=== PATIENT | female | born 2000 | race Caucasian/White ===

== ENCOUNTER 2021-12-08 14:47 | Outpatient (RCR) | payer OTHER, SELFPAY ==
[2021-12-08 15:34] LABS: Beta HCG Quantitative 86.07 mIU/ML
== END 2022-03-08 23:59 | disposition home or self-care (01) ==
LOC: ANHLAB 14:47
PROVIDERS: Visit Provider Advanced Practice Midwife
DX: Z87.59 Personal history of other complications of pregnancy, childbirth and the puerperium (principal)
CPT/HCPCS: 36415; 84702; 86900; 86901

== ENCOUNTER 2021-12-10 16:30 | Outpatient (CLI) | payer OTHER, SELFPAY ==
[2021-12-10 17:16] LABS: Beta HCG Quantitative 273.49 mIU/ML
== END 2021-12-10 16:31 | disposition home or self-care (01) ==
LOC: ANHOBOP 16:38
PROVIDERS: Visit Provider Advanced Practice Midwife
DX: Z34.90 Encounter for supervision of normal pregnancy, unspecified, unspecified trimester (principal); Z3A.00 Weeks of gestation of pregnancy not specified
CPT/HCPCS: 36415; 84702

== ENCOUNTER 2022-02-03 17:26 | Emergency (ER) | payer OTHER, SELFPAY ==
[2022-02-03] VITALS (34 sets, daily range): BP systolic 76–115; BP diastolic 53–84; PULSE 0–124; RESP 13–25; TEMP 37.8; O2SAT 100
--- NOTE | ~2022-02-03 | XR_ITS ---
XR chest 1V portable DATE: 02/03/2022 22:25 INDICATION: Chest pain, tachycardiac. Elevated d-dimer. TECHNIQUE: Portable AP chest on 02/03/2022 2219 hours. COMPARISON: None FINDINGS: Normal heart size. No hilar or mediastinal enlargement. The lungs are clear of infiltrate o r consolidation. No pleural effusion or pulmonary vascular congestion or pneumothorax. Included skeletal structures are unremarkable. IMPRESSION: No active cardiopulmonary disease Reviewed, dictated and finalized at location A.
--- NOTE | ~2022-02-03 | CT_ITS ---
EXAMINATION: CTA chest PE protocol DATE: 02/04/2022 00:39 INDICATION: Chest pain, tachycardia. Elevated d-dimer. TECHNIQUE: Computed tomography angiography (CTA) of the chest was performed with 98 CC Omnipaque 350 intravenous contrast timed to evaluate the pulmonary arteries. Coronal maximum intensity projection 3 D-reconstructions were created by the technologist. Automated exposure control and iterative reconstr uction technique were employed. Exam dose: 334.19 mGy-cm total exam DLP. COMPARISON: 02/03/2022 portable AP chest FINDINGS: There is diagnostic contrast enhancement of the pulmonary arteries and no evidence of pulmo nary embolism. No thoracic aortic aneurysm or dissection. No hilar or mediastinal mass lesion or lymphadenopathy. Normal heart size. No pericardial or pleural effusion. Included skeletal structures are unremarkable. IMPRESSION: Negative examination; no evidence of pulmonary embolism Reviewed, dictated and finalized at Location A. Reviewed, dictated and finalized at location A.
--- NOTE | 2022-02-03 18:06 | ED.NAVMDI ---
HPI - Nausea/Vomiting/Diarrhea General Chief complaint: Upper Respiratory Infection <TINO Hernandez Last Filed: 02/03/22 19:11> Stated complaint: COVID + 02/03/2022 12 WEEKS PREG <TINO Hernandez Last Filed: 02/03/22 19:11> Time Seen by Provider: 02/03/22 18:02 <TINO Hernandez Last Filed: 02/03/22 19:11> Source: patient <TINO Hernandez Last Filed: 02/03/22 19:11> Mode of arrival: ambulatory <TINO Hernandez Last Filed: 02/03/22 19:11> Limitations: no limitations <TINO Hernandez Last Filed: 02/03/22 19:11> History of Present Illness HPI Narrative: This is a 21 year old , about 12 weeks , that presents to the ER for nausea and vomiting. Reports yesterday she started to feel unwell. Today she developed a fever, sore throat, nausea and vomiting. She did a home COVID swab which was positive. Her boyfriend recently had positive as well. She denies any pelvic cramping or vaginal bleeding. Her OB is Dr. Smalls. Denies cough or shortness of breath. <TINO Hernandez Last Filed: 02/03/22 19:11> Related Data Allergies/Adverse reactions: Allergies Allergy/AdvReac Type Severity Reaction Status Date / Time amoxicillin [From Augmentin] Allergy Other Verified 02/03/22 19:25 clavulanic acid Allergy Other Verified 02/03/22 19:25 [From Augmentin] Penicillins Allergy Other Verified 02/03/22 19:25 <TINO Hernandez Last Filed: 02/03/22 19:11> Review of Systems Review of Systems: CONSTITUTIONAL: Denies fever ENT: sore throat RESPIRATORY: Denies cough or dyspnea. GASTROINTESTINAL: Reports nausea, vomiting. Denies diarrhea. GENITOURINARY: Denies dysuria <TINO Hernandez Last Filed: 02/03/22 19:11> All systems reviewed & are unremarkable except as noted in HPI and below <Sheila Quintanilla PA-C - Last Filed: 02/03/22 19:11> [facility] Past Medical History Medical History: Medical History (Updated 02/04/22 @ 02:29 by Sheila Valenzuela PA-C) No active medical problems <Sheila Quintanilla PA-C - Last Filed: 02/03/22 19:11> Social History Social History: Social History (Updated 02/03/22 @ 18:08 by Sheila Quintanilla PA-C) Smoking status: Never smoker <Sheila Quintanilla PA-C - Last Filed: 02/03/22 19:11> Exam Narrative: GENERAL: Well-appearing, well-nourished, and in no acute distress. HEAD: Normocephalic, atraumatic. EYES: EOMI. ENT: Nares clear, no rhinorrhea or epistaxis. Mucous membranes moist. Oropharynx without tonsillar hypertrophy exudate or other lesions. Bilateral TMs pearly mcclellan non-bulging NECK: Supple. No adenopathy or masses. CHEST: Clear to auscultation. No respiratory distress. No wheezes rales or rhonchi HEART: Regular rate and rhythm. No murmur heard. Normal peripheral pulses. ABDOMEN: Soft, nontender, nondistended, normal active bowel sounds. EXTREMITIES: Normal range of motion. No edema. SKIN: Warm, dry, no rash. NEURO: No focal deficits. Alert and oriented x3. PSYCH: Normal mood and affect <Sheila Quintanilla PA-C - Last Filed: 02/03/22 19:11> Course Course Emergency Course: Patient inherited at shift change. She is a 21-year-old female who is currently 12 weeks here for evaluation of nausea, vomiting and generalized malaise in setting of COVID+. She is tachycardic with low grade temperature of 100.1; heart tones detected. She has 4+ ketones and evidence of UTI on UA. Patient was rehydrated in the ED with 2 L of normal saline, her heart rate did decrease, she was given antiemetics and tolerated her p.o. challenge. Discussed with OB, will follow up in office, recommended daily asa. Additionally, patient complaining of chest pain; has had chest pain in past and has been told she has abnormal EKG, but has never seen shorts sifter. EKG is abnormal here, no previous to compare, she had 2 sets of troponins that were negative, discussed with Dr. Arnett car
--- NOTE | 2022-02-03 18:20 | ECG_ITS ---
Measurements Intervals [place] Rate: 92 P: 56 AK: 164 QRS: 68 QRSD: 74 T: -30 QT: 331 QTc: 410 Interpretive Statements SINUS RHYTHM ST-T WAVE ABNORMALITY IN ANT/INF LEADS- CONSIDER ISCHEMIA BASELINE ARTIFACT- II, III, AVF ABNORMAL ECG Electronically Signed On 02-03-2022 21:22:31 CDT by Ellis Lara D.O.
[2022-02-03 18:30] LABS: Appearance Urine Clear (Clear); Bilirubin Urine 1+ (Negative); Blood Urine 1+ (Negative); Color Urine Yellow (Yellow); Glucose Urine UA Negative (Negative); Ketones Urine 4+ mg/dL (Negative); Leukocyte Esterase Ur Trace LEU/UL (Negative); Nitrate Urine Negative (Negative); Protein Urine 1+ mg/dL (Negative); Specific Grav Ur 1.025 (1.001-1.035)
[2022-02-03 18:39] LABS: Bacteria Urine Trace /hpf; Mucus Urine Heavy /lpf; Squamous Epithelial Cell Urine Many /hpf (Few); WBC Urine 0-3 /hpf
[2022-02-03 18:41] LABS: Add Urine Microscopic? YES
[2022-02-03] MEDS: ONDANSETRON INJ 4 MG/2 ML VIAL IV PUSH (19:05)
[2022-02-03 19:12] LABS: Basophils Percent Auto 0.2 % (0.2-1.2); Hematocrit 33.3 % (37.0-47.0); Hemoglobin 11.5 g/dL (12.0-15.0); Immature Granulocyte Absolute 0.01 K/mm3 (0.00-0.031); Immature Granulocyte Percent A 0.2 % (0-0.5); Lymphocytes Absolute Auto 0.24 K/mm3 (0.9-3.2); Lymphocytes Percent Auto 4.9 % (18.3-44.2); Mean Corpuscular HGB Conc 34.5 g/dl (32-36); Mean Corpuscular Hemoglobin 29.8 pg (26-34); Mean Corpuscular Volume 86.3 fl (80-100); Mean Platelet Volume 10.2 fl (7.4-10.4); Monocytes Absolute Auto 0.5 K/mm3 (0.1-0.6); Monocytes Percent Auto 9.9 % (2.6-8.5); Neutrophils Absolute Auto 4.1 K/mm3 (1.3-6.7); Neutrophils Percent Auto 84.8 % (45.5-73.1); Platelet Count Result 153 k/mm3 (150-375); Red Blood Count 3.86 M/mm3 (4.2-5.4); Red Cell Distribution Width 12.5 % (11.5-14.5); White Blood Count 4.9 K/mm3 (4.5-10.0)
[2022-02-03 19:22] LABS: Alanine Aminotransferase 10 U/L (6-35); Albumin Level 4.2 g/dL (3.5-5.1); Alkaline Phosphatase 47 U/L (38-126); Anion Gap 9 mmol/L (8-16); Aspartate Amino Transferase 19 U/L (14-36); Bilirubin,Total 0.4 mg/dL (0.2-1.3); Blood Urea Nitrogen 3 mg/dL (7-17); Calcium 8.6 mg/dL (8.4-10.2); Carbon Dioxide 21 mmol/L (22-30); Chloride 104 mmol/L (98-107); Estimated Glomerular Filt Rate > 60; Glucose 87 mg/dL (65-110); Lipase 38 U/L (23-300); Potassium 3.5 mmol/L (3.4-5.0); Sodium 134 mmol/L (137-145)
--- NOTE | 2022-02-03 19:23 | PC.NURSE ---
Patient report given to SAMEER Nielsen. All questions answered and care of patient transferred.
[2022-02-03 19:26] LABS: Ovalocytes 1+ (NORMAL); Platelet Estimate Adequate (Adequate)
--- NOTE | 2022-02-03 19:27 | PC.NURSE ---
Patient report given to SAMEER Nielsen. All questions answered and care of patient transferred.
[2022-02-03] MEDS: SODIUM CHLORIDE 0.9% IV 1,000 ML 999 ML IV CONT ×2 (19:30→21:02)
[2022-02-03] MEDS: FAMOTIDINE 20 MG/2 ML VIAL IV PUSH (19:31)
[2022-02-03 20:18] LABS: SARS-CoV-2 RNA PCR Positive
[2022-02-03 21:46] LABS: Troponin I < 0.012 ng/mL (0.000-0.034)
[2022-02-03 21:55] LABS: Amphetamine Screen Urine Negative (Negative); Barbiturate Screen Urine Negative (Negative); Benzodiazepines Screen Urine Negative (Negative); Cannabinoid Screen Urine Negative (Negative); Cocaine Screen Urine Negative (Negative); Methadone Screen Urine Negative (Negative); Opiate Screen Urine Negative (Negative); Phencyclidine Screen Urine Negative (Negative)
[2022-02-03] MEDS: ASPIRIN 81 MG CHEWABLE TABLET PO (22:16)
[2022-02-03 22:55] LABS: Troponin I < 0.012 ng/mL (0.000-0.034)
[2022-02-04 00:04] LABS: D Dimer 2.07 ug/mL (<0.48)
[2022-02-04 00:36] VITALS: PULSE 118; RESP 18
[2022-02-04 00:45] VITALS: PULSE 105; RESP 18
[2022-02-04 02:06] VITALS: BP 109/72; PULSE 96; RESP 20; O2SAT 100
[2022-02-04 02:57] VITALS: BP 92/62; PULSE 107; RESP 15; O2SAT 100
== END 2022-02-04 02:56 | disposition home or self-care (01) ==
PROVIDERS: Physician Assistant; Emergency Provider Emergency Medicine; PCP Obstetrics & Gynecology
DX: O98.511 Other viral diseases complicating pregnancy, first trimester (principal); U07.1 COVID-19; O23.41 Unspecified infection of urinary tract in pregnancy, first trimester; Z3A.13 13 weeks gestation of pregnancy; R94.31 Abnormal electrocardiogram [ECG] [EKG]
CPT/HCPCS: 36415; 71045; 71275; 80053; 80307; 81001; 81025; 83690; 84484; 85025; 85380; 93005; 96361; 96365; 96375; 99284; A9270; C9803; J0131; J2405; J7030; Q9967; U0003; U0005

== ENCOUNTER 2022-02-26 00:23 | Emergency (ER) | payer OTHER, SELFPAY ==
[2022-02-26] VITALS (8 sets, daily range): BP systolic 91–118; BP diastolic 58–82; PULSE 58–101; RESP 16–18; TEMP 36.9; O2SAT 98–100
--- NOTE | ~2022-02-26 | US_ITS ---
EXAMINATION: US OB limited DATE: 02/26/2022 04:51 INDICATION: Vaginal bleeding. TECHNIQUE: Real-time ultrasound of the pelvis was performed. COMPARISON: None. FINDINGS: There is a single fetus in variable presentation. The placenta is posterior, 3.5 cm from the cervix. There is a 5.7 x 4.5 x 1.3 cm hypoechoic mass at the margin of the placenta, consistent with a hemat shanel. heart rate is 141 beats per minute (bpm). The amniotic fluid volume is subjectively normal . IMPRESSION: 1. Single living fetus in variable presentation. 2. 5.7 x 4.5 x 1.3 cm hematoma at the margin of the placenta. Reviewed, dictated and finalized at location A.
[2022-02-26 00:52] LABS: Basophils Percent Auto 0.5 % (0.2-1.2); Eosinophils Absolute Auto 0.2 K/mm3 (0-0.3); Eosinophils Percent Auto 2.8 % (0-4.4); Hematocrit 33.8 % (37.0-47.0); Hemoglobin 11.2 g/dL (12.0-15.0); Immature Granulocyte Absolute 0.02 K/mm3 (0.00-0.031); Immature Granulocyte Percent A 0.3 % (0-0.5); Lymphocytes Absolute Auto 2.13 K/mm3 (0.9-3.2); Lymphocytes Percent Auto 26.9 % (18.3-44.2); Mean Corpuscular HGB Conc 33.1 g/dl (32-36); Mean Corpuscular Hemoglobin 29.5 pg (26-34); Mean Corpuscular Volume 88.9 fl (80-100); Mean Platelet Volume 10.7 fl (7.4-10.4); Monocytes Absolute Auto 0.9 K/mm3 (0.1-0.6); Monocytes Percent Auto 11.1 % (2.6-8.5); Neutrophils Absolute Auto 4.6 K/mm3 (1.3-6.7); Neutrophils Percent Auto 58.4 % (45.5-73.1); Platelet Count Result 188 k/mm3 (150-375); Red Cell Distribution Width 13.2 % (11.5-14.5); White Blood Count 7.9 K/mm3 (4.5-10.0)
--- NOTE | 2022-02-26 01:00 | PC.NURSE ---
heart tones found in lower abd, 168 BPM
--- NOTE | 2022-02-26 01:29 | ED.GENADULT ---
HPI - General Adult General Chief complaint: Vaginal Bleeding Stated complaint: 15wks preg, vaginal bleeding Time Seen by Provider: 02/26/22 01:05 History of Present Illness HPI narrative: 21-year-old female that is approximately 14 weeks presented emergency department for evaluation of abdominal cramping and vaginal bleeding. Patient states that she did have an ultrasound at 12 weeks confirming an IUP. Patient's blood type is O+. Related Data Allergies Allergy/AdvReac Type Severity Reaction Status Date / Time amoxicillin [From Augmentin] Allergy Other Verified 02/26/22 00:54 clavulanic acid Allergy Other Verified 02/26/22 00:54 [From Augmentin] Penicillins Allergy Other Verified 02/26/22 00:54 Review of Systems Review of Systems: CONSTITUTIONAL: Denies fever, chills, or sweats. EYES: Denies visual changes, redness, or discharge. ENT: Denies rhinorrhea, congestion, sore throat, or otalgia. CARDIOVASCULAR: Denies chest pain, palpitations, or edema. RESPIRATORY: Denies cough or dyspnea. GASTROINTESTINAL: See HPI GENITOURINARY: Denies dysuria or hematuria. SKIN: Denies rash or itching. MUSCULOSKELETAL: Denies back pain, joint pain, or myalgia. NEUROLOGIC: Denies headache, numbness, or weakness. [facility] Past Medical History Medical History (Updated 02/27/22 @ 00:01 by Marija Lopez) No active medical problems Social History Social History (Updated 02/03/22 @ 18:08 by Sheila Quintanilla PA-C) Smoking status: Never smoker Exam Narrative: APPEARANCE: Well appearing, no pain, no distress, well-nourished. HEAD: normocephalic, atraumatic. EYES: PERRLA/EOMI, conjunctivae clear. NOSE: Normal no drainage EARS:TMS clear with good light reflex. THROAT: Pharynx clear, no exudate. NECK: Supple. No adenopathy, no masses. RESPIRATORY: Airway patent, respirations nonlabored. Clear to auscultation bilaterally, no rales, rhonchi, wheezing. CARDIOVASCULAR: Regular rate and rhythm without murmurs rubs or gallops. ABDOMINAL: Soft, nontender, nondistended, normal bowel sounds Pelvic exam: Minimal blood within the vaginal canal. Cervix is closed. MUSCULOSKELETAL: Moves all extremities. Strength/ROM intact, No edema, No calf tenderness. NEURO: Alert. Cranial nerves II through XII intact. SKIN: Warm, dry. 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 All questions and concerns were addressed. Patient is O+ and does not need RhoGAM at this time. Patient was comfortable with the plan for discharge and close follow-up. Patient did feel improved at time of discharge. Vital Signs Vital signs: Vital Signs Temperature 98.4 F 02/26/22 00:26 Pulse Rate 101 H 02/26/22 00:26 Respiratory Rate 18 02/26/22 00:26 Blood Pressure 114/82 02/26/22 00:26 Pulse Oximetry 100 02/26/22 00:26 Oxygen Delivery Room Air 02/26/22 00:26 Temperature 98.4 F 02/26/22 00:26 Pulse Rate 58 L 02/26/22 06:32 Respiratory Rate 16 02/26/22 06:32 Blood Pressure 91/58 L 02/26/22 06:32 Pulse Oximetry 98 02/26/22 06:32 Oxygen Delivery Room Air 02/26/22 00:26 Medical Decision Making Vital Signs Vital Signs: Vital Signs Temperature 98.4 F 02/26/22 00:26 Pulse Rate 101 H 02/26/22 00:26 Respiratory Rate 18 02/26/22 00:26 Blood Pressure 114/82 02/26/22 00:26 Pulse Oximetry 100 02/26/22 00:26 Oxygen Delivery Room Air 02/26/22 00:26 Temperature 98.4 F 02/26/22 00:26 Pulse Rate 58 L 02/26/22 06:32 Respiratory Rate 16 02/26/22 06:32 Blood Pressure 91/58 L 02/26/22 06:32 Pulse Oximetry 98 02/26/22 06:32 Oxygen Delivery Room Air 02/26/22 00:26 Lab Data Lab results reviewed: Yes I reviewed the patient's lab results. Result diagrams: 02/26/22 00:35 Labs: Lab Results 02/26/22 02/26/22 02/26/22 Range/Units 00:35 00:35 00:35 WBC 7.9
[2022-02-26] MEDS: SODIUM CHLORIDE 0.9% IV 1,000 ML 999 ML IV CONT (01:58)
--- NOTE | 2022-02-26 03:36 | PC.NURSE ---
Ultrasound called at this time.
--- NOTE | 2022-02-26 05:30 | PC.NURSE ---
Pt reports vaginal bleeding has slowed since last assessment. Used 1 pad since approx 0100. Rates pain 09/28. Lights dimmed, pt updated on POC.
== END 2022-02-26 06:59 | disposition home or self-care (01) ==
PROVIDERS: Emergency Provider Emergency Medicine; PCP Obstetrics & Gynecology
DX: O20.9 Hemorrhage in early pregnancy, unspecified (principal); Z3A.14 14 weeks gestation of pregnancy
CPT/HCPCS: 36415; 76815; 84702; 85025; 85461; 96361; 96365; 99284; J0131; J7030

== ENCOUNTER 2022-05-15 20:34 | Emergency (ER) | payer OTHER, SELFPAY ==
[2022-05-15 20:40] VITALS: BP 123/84; PULSE 108; RESP 16; TEMP 36.3; O2SAT 100
--- NOTE | 2022-05-15 21:48 | ED.GENADULT ---
HPI - General Adult General Chief complaint: Wound/Laceration Stated complaint: Rash Right Leg Time Seen by Provider: 05/15/22 21:14 History of Present Illness HPI narrative: This is a 27 week 21-year-old female presenting ED with a chief complaint of a rash on her leg. Patient originally had some red pustules that have now Colestid she has a arnold crusted that is approximately 1.5 cm rounded on her thigh. Patient has never had a lesion like this before. She denies fever, chills, Nausea vomiting or diarrhea. 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 Denies use of IV drugs. She denies history of diabetes. She has no forepart rounder complaints at this time. Related Data Allergies Allergy/AdvReac Type Severity Reaction Status Date / Time amoxicillin [From Augmentin] Allergy Other Verified 05/15/22 20:44 clavulanic acid Allergy Other Verified 05/15/22 20:44 [From Augmentin] Penicillins Allergy Other Verified 05/15/22 20:44 Review of Systems Review of Systems: CONSTITUTIONAL: Denies night sweats. EYES: No eye pain ENT: Denies rhinorrhea CARDIOVASCULAR: Denies palpitations RESPIRATORY: Denies hemoptysis GASTROINTESTINAL: Denies hematemesis GENITOURINARY: Denies hematuria. SKIN: Denies rash MUSCULOSKELETAL: Denies myalgia. NEUROLOGIC: Denies weakness. PSYCHIATRIC: Denies delusions PMFSH Past Medical History Medical History (Updated 05/15/22 @ 21:53 by Jamal Chin MD) No active medical problems Social History Social History (Updated 02/03/22 @ 18:08 by Sheila Quintanilla PA-C) Smoking status: Never smoker Exam Narrative: APPEARANCE: No apparent distress. Head atraumatic. EYES: PERRLA/EOMI, NOSE: Normal no drainage NECK: Supple, Trachea midline RESPIRATORY: CTAB, No increased work of breathing. CARDIOVASCULAR: S1S2 appreciated ABDOMINAL: Soft, nontender, nondistended, MUSCULOSKELETAl: No obvious deformities NEURO: Alert. Moving 4/4 extremities SKIN:: 1.5 cm circular lesion on the patient's right thigh. It has a arnold crust. PSYCHIATRIC: Normal affect Course Vital Signs Vital signs: Vital Signs Temperature 97.4 F L 05/15/22 20:40 Pulse Rate 108 H 05/15/22 20:40 Respiratory Rate 16 05/15/22 20:40 Blood Pressure 123/84 05/15/22 20:40 Pulse Oximetry 100 05/15/22 20:40 Oxygen Delivery Room Air 05/15/22 20:40 Temperature 97.4 F L 05/15/22 20:40 Pulse Rate 108 H 05/15/22 20:40 Respiratory Rate 16 05/15/22 20:40 Blood Pressure 123/84 05/15/22 20:40 Pulse Oximetry 100 05/15/22 20:40 Oxygen Delivery Room Air 05/15/22 20:40 Medical Decision Making MDM Narrative Medical decision making narrative: Patient has a lesion on her thigh has a cold crust over. It is consistent with a staph infection. She will be treated with po Keflex and topical mupirocin. Patient has an amoxicillin allergy, however she is taking Keflex in the past with no reaction. She will be given her 1st dose here and monitored for 30 minutes before discharge.Patient instructed to follow-up with her primary care physician Vital Signs Vital Signs: Vital Signs Temperature 97.4 F L 05/15/22 20:40 Pulse Rate 108 H 05/15/22 20:40 Respiratory Rate 16 05/15/22 20:40 Blood Pressure 123/84 05/15/22 20:40 Pulse Oximetry 100 05/15/22 20:40 Oxygen Delivery Room Air 05/15/22 20:40 Temperature 97.4 F L 05/15/22 20:40 Pulse Rate 108 H 05/15/22 20:40 Respiratory Rate 16 05/15/22 20:40 Blood Pressure 123/84 05/15/22 20:40 Pulse Oximetry 100 05/15/22 20:40 Oxygen Delivery Room Air 05/15/22 20:40 Discharge Plan Discharge Clinical Impression: Impetigo, Soft tissue infection Patient Disposition: Home, Self-Care Condition: Stable Instructions: Antibiotic Form, Impetigo (DC) Additional Instructions: Please complete your 7 day course of Keflex and use topical mupirocin. If your condition does not improve
== END 2022-05-15 22:06 | disposition home or self-care (01) ==
PROVIDERS: Emergency Provider Emergency Medicine; PCP Obstetrics & Gynecology
DX: O99.712 Diseases of the skin and subcutaneous tissue complicating pregnancy, second trimester (principal); L01.00 Impetigo, unspecified; L08.9 Local infection of the skin and subcutaneous tissue, unspecified; Z3A.27 27 weeks gestation of pregnancy
CPT/HCPCS: 99283

== ENCOUNTER 2022-06-29 12:45 | Outpatient (CLI) | payer OTHER, SELFPAY ==
--- NOTE | ~2022-06-29 | US_ITS ---
EXAMINATION: US breast LT limited HISTORY: Palpable lump in the outer left breast at the 3:00 location. TECHNIQUE: Limited left breast ultrasound was performed. FINDINGS: There is a 3.4 x 2.8 x 1.4 cm oval, circumscribed, parallel, hypoechoic mass with posterior acoustic enhancement and internal vascularity corresponding to the palpable abnormality of concern. IMPRESSION: Indeterminate left breast mass. Ultrasound-guided biopsy is recommended. BI-RADS category 4, suspicious findings. Reviewed, dictated and finalized at location F. TOR TECH
== END 2022-06-29 12:46 | disposition home or self-care (01) ==
LOC: ANHIMG 12:47
PROVIDERS: Visit Provider Obstetrics & Gynecology
DX: N63.20 Unspecified lump in the left breast, unspecified quadrant (principal); R92.8 Other abnormal and inconclusive findings on diagnostic imaging of breast
CPT/HCPCS: 76642

== ENCOUNTER 2022-07-10 05:37 | Observation (INO) | payer OTHER, SELFPAY ==
[2022-07-10 07:48] VITALS: BP 115/73; PULSE 84
[2022-07-10 08:00] VITALS: BP 114/66; PULSE 76
[2022-07-10 08:15] VITALS: BMI 22.1
--- NOTE | 2022-07-10 08:15 | OBADM ---
This patient, Melany Laws, admitted to the OB room OB Post [facility] for observation. Patient/family oriented to hospital policies and general routines including ID bracelet, bed and alarms, visiting hours, pain management, procedures, bathroom and other care routines, personal items, smoking policy, room service/diet, and visiting hours. Patient/Family are encouraged to report perceived risks to care and to ask questions if they do not understand what they are told or what they should do.
[2022-07-10 08:17] LABS: Add Urine Microscopic? NO; Appearance Urine Clear (Clear); Bilirubin Urine Negative (Negative); Blood Urine Negative (Negative); Color Urine Light Yellow (Yellow); Glucose Urine UA Negative (Negative); Ketones Urine Negative (Negative); Leukocyte Esterase Ur Negative LEU/UL (Negative); Nitrate Urine Negative (Negative); Protein Urine Negative (Negative)
[2022-07-10 08:30] VITALS: BP 110/57; PULSE 73
--- NOTE | 2022-07-30 08:42 | PM.OBTRLD ---
OB - Triage/Final Diagnosis Visit Information Comments/Additional reasons for admission: I have assessed the risk for this patient, Melany Laws, and determined that she would benefit from observation care. Evaluation Laboratory results: Laboratory Tests 07/10/22 07:59 Urine Color Light yellow Urine Appearance Clear Urine pH 7.0 Ur Specific [place] 1.010 Urine Protein Negative Urine Glucose (UA) Negative Urine Ketones Negative Ur Blood (Man) Negative Urine Nitrate Negative Urine Bilirubin Negative Urine Urobilinogen 1.0 Leukocyte Esterase Rfl Negative Final Diagnosis (1) Irregular contractions: Code(s): O47.9 - False labor, unspecified Status: Acute
== END 2022-07-10 10:20 | disposition home or self-care (01) ==
PROVIDERS: Admitting Provider Obstetrics & Gynecology; Visit Provider Obstetrics & Gynecology
DX: O47.03 False labor before 37 completed weeks of gestation, third trimester (principal); Z3A.34 34 weeks gestation of pregnancy
CPT/HCPCS: 81003; G0378; G0379

== ENCOUNTER 2022-08-11 06:13 | Inpatient (IN) | payer OTHER, SELFPAY ==
[2022-08-11] VITALS (158 sets, daily range): BP systolic 99–149; BP diastolic 52–99; PULSE 72–157; RESP 15–17; TEMP 36.7–37.6; O2SAT 95–100; BMI 22.4
[2022-08-11 07:01] LABS: Basophils Absolute Auto 0.1 K/mm3 (0.0-0.1); Basophils Percent Auto 0.6 % (0.2-1.2); Eosinophils Absolute Auto 0.2 K/mm3 (0-0.3); Eosinophils Percent Auto 1.8 % (0-4.4); Hematocrit 34.7 % (37.0-47.0); Hemoglobin 11.3 g/dL (12.0-15.0); Immature Granulocyte Absolute 0.12 K/mm3 (0.00-0.031); Immature Granulocyte Percent A 1.2 % (0-0.5); Lymphocytes Absolute Auto 1.89 K/mm3 (0.9-3.2); Lymphocytes Percent Auto 18.3 % (18.3-44.2); Mean Corpuscular HGB Conc 32.6 g/dl (32-36); Mean Corpuscular Hemoglobin 28.3 pg (26-34); Monocytes Percent Auto 9.9 % (2.6-8.5); Neutrophils Absolute Auto 7.1 K/mm3 (1.3-6.7); Neutrophils Percent Auto 68.2 % (45.5-73.1); Platelet Count Result 203 k/mm3 (150-375); Red Blood Count 3.99 M/mm3 (4.2-5.4); Red Cell Distribution Width 19.7 % (11.5-14.5); White Blood Count 10.4 K/mm3 (4.5-10.0)
[2022-08-11] MEDS: DINOPROSTONE 10 MG VAG INSERT VAGINAL (07:16)
--- NOTE | 2022-08-11 07:25 | LDADM ---
This patient, Melany Laws, was admitted to Labor/Delivery/Recovery 106 on 08/11/22 at 06:13. Plans for labor, pain management and were discussed with patient. Patient/family oriented to hospital policies and general routines including ID bracelet, bed and alarms, visiting hours, pain management, procedures, bathroom and other care routines, personal items, smoking policy, room service/diet and guest tray routines, infant security routines, and visiting hours. Patient/Family are encouraged to report perceived risks to care and to ask questions if they do not understand what they are told or what they should do. See OBIX for further documentation.
--- NOTE | 2022-08-11 09:11 | WPDOBADMIT ---
Obstetrics - Admit Note Admission Note: record reviewed. No pertinent additions to the history and/or any subsequent changes in the physical findings that are not consistent with the expected course of the were found. Elective IOL at 39 weeks, cervadil, anticipate vaginal delivery Additions to the history and/or subsequent changes in the physical findings follow. None.
--- NOTE | 2022-08-11 09:28 | WPDANESEPP ---
Anes - Eval Pre Procedure Procedure: labor epidural Date/Time: 08/11/22 09:28 Preop Diagnosis: labor pain Pre Op Diagnosis: IOL Patient Data Age: 21 Gender: F Height: Weight: Last Vital Signs Temp 36.8 C 08/11/22 07:30 Pulse 88 08/11/22 09:00 BP 104/54 L 08/11/22 09:00 O2 Del Method Room Air 08/11/22 07:24 Allergies Allergy/AdvReac Type Severity Reaction Status Date / Time amoxicillin [From Augmentin] Allergy Other Verified 06/18/22 14:32 clavulanic acid Allergy Other Verified 06/18/22 14:32 [From Augmentin] ferrous sulfate Allergy Rash Verified 07/26/22 14:26 Penicillins Allergy Other Verified 06/18/22 14:32 Home Medications Medication Instructions Recorded Confirmed Type valacyclovir 500 mg tablet 500 mg PO BID 07/26/22 07/26/22 History (Valtrex) Laboratory Tests 08/11/22 08/11/22 08/11/22 06:54 06:54 06:54 WBC 10.4 K/mm3 H K/mm3 (4.5-10.0) RBC 3.99 M/mm3 L M/mm3 (4.2-5.4) Hgb 11.3 g/dL L g/dL (12.0-15.0) Hct 34.7 % L % (37.0-47.0) MCV 87.0 fl fl (80-100) MCH 28.3 pg pg (26-34) MCHC 32.6 g/dl g/dl (32-36) RDW 19.7 % H % (11.5-14.5) Plt Count 203 k/mm3 k/mm3 (150-375) MPV 10.0 fl fl (7.4-10.4) Immature Gran % (Auto) 1.2 % H % (0-0.5) Neut % (Auto) 68.2 % % (45.5-73.1) Lymph % (Auto) 18.3 % % (18.3-44.2) [place] % (Auto) 9.9 % H % (2.6-8.5) Eos % (Auto) 1.8 % % (0-4.4) Baso % (Auto) 0.6 % % (0.2-1.2) Lymph # (Auto) 1.89 K/mm3 K/mm3 (0.9-3.2) [place] # (Auto) 1.0 K/mm3 H K/mm3 (0.1-0.6) Eos # (Auto) 0.2 K/mm3 K/mm3 (0-0.3) Baso # (Auto) 0.1 K/mm3 K/mm3 (0.0-0.1) Abs Immat Gran (auto) 0.12 K/mm3 H K/mm3 (0.00-0.031) Absolute Neuts (auto) 7.1 K/mm3 H K/mm3 (1.3-6.7) Absolute Nucleated RBC 0.0 K/mm3 K/mm3 (0.0-0.012) Nucleated RBC % 0.0 % % (0.0-0.2) RPR Pending Blood Type O Positive Antibody Screen Negative ECG: ? Measurements Intervals? [place]? Rate: ? 92 ? P:? 56 TX: ? 164? QRS:? 68 QRSD: ? 74 ? T:? -30 QT: ? 331? QTc:? 410? Interpretive Statements SINUS RHYTHM ST-T WAVE ABNORMALITY IN ANT/INF LEADS- CONSIDER ISCHEMIA BASELINE ARTIFACT- II, III, AVF ABNORMAL ECG Electronically Signed On 02-03-2022 21:22:31 CDT by Ellis Lara D.O Patient hx anesthesia problems: none Family hx anesthesia problems: none Results Review: All pre-operative results and documents have been reviewed as part of the pre-operative evaluation. [facility] Past Medical History Medical History No active medical problems Social History Social History Smoking status: Former smoker Smoking end date: 11/19/21 Substance use: never Lack of Transportation: No Lack of Food: Never True Current Housing: I Have Housing Concerned About Future Housing: No Difficulty Paying Gas/Electric Bills: No Difficulty Paying for Meds: No Currently Unemployed: No Education: Grade School Difficulty w/ Childcare or Family Care: No Spiritual care concerns: No Exam Day of Procedure 08/11/22 09:28 Patient weight: normal Heart: regular rate and rhythm Lungs: clear to auscultation and normal air movement Airway: Mallampati scale class II Neurological: alert and oriented
[2022-08-11] MEDS: fentaNYL CITRATE INJ (*CRX) 100 MCG/2 ML VIAL 50 MCG IV PUSH ×2 (11:25→12:41)
[2022-08-11] MEDS: fentaNYL CITRATE INJ (*CRX) 100 MCG/2 ML VIAL IV PUSH (13:54)
[2022-08-11] MEDS: LACTATED RINGERS 1,000 ML 125 ML IV CONT ×4 (14:36→23:25)
--- NOTE | 2022-08-11 18:26 | PM.OBPNLAB ---
Pain Control Date/time seen: 08/11/22 18:26 SVE /-2 AROM large mount of clear odorless fluid. anticipate vaginal delivery
[2022-08-11] MEDS: ONDANSETRON INJ 4 MG/2 ML VIAL IV PUSH (22:40)
[2022-08-12] VITALS (54 sets, daily range): BP systolic 105–144; BP diastolic 61–87; PULSE 73–141; RESP 15–17; TEMP 36.4–37.7; O2SAT 97–100
[2022-08-12] MEDS: OXYTOCIN 30 UNITS/NS 500 ML 30 UNITS/500 ML BAG 999 UNITS IV CONT (02:35)
[2022-08-12] MEDS: miSOPROStol 200 MCG TABLET 1000 MCG RECTAL (02:44)
--- NOTE | 2022-08-12 02:52 | PM.OBPRVD ---
OB - Delivery Note Procedure Delivery date: 08/12/22 Procedure: vaginal delivery Induction method: Per Cervidil Protocol Delivery monitor: External FHT and External Uterine Route of delivery: Laceration Description: Perineal - 1st Degree Delivery repair: vicryl Specimen: No Quantitative Blood Loss (ml): 370 Anesthesia type: Epidural Disposition: Floor Baby Date of : 08/12/22 Time of : 02:34 Weeks of gestation at delivery: 39 gender: Female Weight (pounds): 7 Weight (ounces): 11 presentation: vertex position: Left Occiput Anterior Placenta delivery description: Spontaneous Cord Vessel Description: 3 Vessels, Clamped/Cut and Delayed Cord Clamping score one minute: 8 score five minutes: 9 Narrative: mother and baby skin to skin in stable condition, fundus boggy after delivery of placenta and after massage, firm after cytotec placed rectally
[2022-08-12] MEDS: OXYTOCIN 30 UNITS/NS 500 ML 30 UNITS/500 ML BAG 125 UNITS IV CONT (03:08)
[2022-08-12] MEDS: WITCH HAZEL 40 PADS 1 PAD TOPICAL (03:58)
[2022-08-12] MEDS: BENZOCAINE 20% AER SPR (*SP) 56 GM CAN 1 SPRAY TOPICAL (03:58)
[2022-08-12] MEDS: DOCUSATE SODIUM 100 MG CAPSULE PO (08:25)
[2022-08-12] MEDS: MULTIVIT/MIN/PREN/FOL AC/IRON TABLET 1 TAB PO (08:25)
--- NOTE | 2022-08-12 12:49 | WPDANLDPN2 ---
Anes-Prog Note L&D Date/Time: 08/12/22 12:49 Neuro status: Neuro function grossly intact. Cardiovascular status: normal Respiratory status: normal Airway patency: baseline Mental status: baseline Post-Op hydration status: normal Vital Signs: Last Vital Signs Temp 37.7 C H 08/12/22 08:00 Pulse 76 08/12/22 08:00 Resp 16 08/12/22 08:00 BP 105/61 08/12/22 08:00 Pulse Ox 98 08/12/22 08:00 O2 Del Method Room Air 08/12/22 08:00 Pain score (VAS): 07/31 I/O: Intake & Output 08/11/22 08/12/22 08/12/22 23:59 07:59 15:59 Intake Total 1999 500 Output Total 93 Balance 1999 407 Post-procedural complaints: none Patient feedback: Patient satisfied with anesthetic care.
[2022-08-13 01:15] VITALS: BP 110/81; PULSE 70; RESP 16; TEMP 36.8; O2SAT 99
[2022-08-13 05:35] LABS: Hematocrit 30.4 % (37.0-47.0); Hemoglobin 9.8 g/dL (12.0-15.0)
--- NOTE | 2022-08-13 07:57 | PM.OBPNVD ---
OB - PN: Subj Subjective Date/time seen: 08/13/22 07:57 Patient comments: no complaints baby status: doing well OB - PN: Obj Data Labs 08/13/22 05:24 Labs: Laboratory Results - last 24 hr 08/13/22 05:24 Hgb 9.8 L Hct 30.4 L OB - PN A/P Plan day: 1 Plan: routine care Time Spent With Patient Time: Total time spent is greater than 50% in coordination of care (as documented) at patient's floor/unit and/or counseling patient: Time with patient: less than 15 minutes Review of Systems Review of Systems: All systems reviewed & are unremarkable except as noted in HPI and below Exam Narrative: Fundus firm and vaginal flow controlled. No lower ext redness, warmth, or edema. Negative homans. Const: General: comfortable Chest: Breast/axilla inspection: normal inspection of the breasts Resp: Effort & Inspection: normal respiratory effort Cardio: Rate: regular rate GI: GI Palp: Yes Soft to palpation Psych: Appearance: grossly normal Affect: normal affect Attitude: cooperative Thought content: Yes Normal thought content present Judgement: Good judgement present (Psych)
[2022-08-13 08:00] VITALS: BP 108/62; PULSE 68; RESP 18; TEMP 37.3; O2SAT 100
--- NOTE | 2022-08-13 10:01 | WPDANLDPN2 ---
Anes-Prog Note L&D Date/Time: 08/13/22 10:01 Comfortable throughout: labor and delivery Neuraxial method: epidural Epidural/Spinal procedure site: clean & non-tender Neuro status: Neuro function grossly intact. Cardiovascular status: normal Respiratory status: normal Airway patency: baseline Mental status: baseline Post-Op hydration status: normal Vital Signs: Last Vital Signs Temp 37.3 C 08/13/22 08:00 Pulse 68 08/13/22 08:00 Resp 18 08/13/22 08:00 BP 108/62 08/13/22 08:00 Pulse Ox 100 08/13/22 08:00 O2 Del Method Room Air 08/12/22 08:00 Pain score (VAS): 10 I/O: Intake & Output 08/12/22 08/13/22 08/13/22 23:59 07:59 15:59 Intake Total 240 Balance 240 Post-procedural complaints: none Patient feedback: Patient satisfied with anesthetic care.
[2022-08-13] MEDS: MULTIVIT/MIN/PREN/FOL AC/IRON TABLET 1 TAB PO (10:05)
[2022-08-13] MEDS: DOCUSATE SODIUM 100 MG CAPSULE PO (10:05)
[2022-08-13 10:51] LABS: Rapid Plasma Reagin Non-Reactive (NonReactive)
--- NOTE | 2022-08-13 15:03 | PC.NURSE ---
[id number] Introductions were made, then consulted with patient to assess needs related to . Mother led the conversation with her?plans to feed?her infant and the?experience so far. Resources provided for inpatient and outpatient services with the mom/baby guide. Mother voiced understanding of information and is receptive to assistance. is skin to skin and effectively latches to both breast, however, breastfeeds for a few minutes on each side. Mother states she bottle fed her one hour ago. Prior to meeting RN mother was initiated with the feeding plan. Mother is , supplementing with formula bottles and pumping her breast for milk production. Discussed with mother the risks and benefits of the feeding plan, reviewed mom and infant's medical history and addressed questions and concerns. Mother was encouraged to continue to breastfeed and practice skin to skin. Mother voiced understanding of information and when to call for assistance. Reported to the primary RN.
--- NOTE | 2022-08-13 20:42 | PC.NURSE ---
1100 Patient viewed the discharge video Mother & Baby Care, The First Two Weeks . Patient was given the opportunity and encouraged to ask questions. Patient verbalized understanding of information shared and has been given the mother/baby guide for home reference.
[2022-08-14 08:01] VITALS: BP 104/76; PULSE 77; RESP 18; TEMP 36.8; O2SAT 99
--- NOTE | 2022-08-27 08:02 | PM.OBDSVD ---
DS: Admitting Diagnosis Discharge Date 08/13/22 Admitting Diagnosis Labor OB - DS: Summary OB Procedures : None OB Procedures Intrapartum: Spontaneous Vag Delivery OB Procedures: : Other (PPH) Time Spent with Patient Time attestation: Total time spent providing and/or coordinating discharge services: Discharge Plan Discharge Consulting providers: Veena Trevino Discharging Clinician: Aziza Pérez Anticipated Discharge Date/Time: 08/13/22 14:00 Patient Disposition: Home, Self-Care Activity: other - see discharge instructions Diet: regular Wound Care Instructions: follow printed instructions Discharge Instructions: Education: Mom and Baby Guide Given to: Mother Follow-Up: Call your delivering provider's office for an appointment to be seen in: 4 Weeks Mom and baby should come to the [facility] for the follow-up appointment. Appointment Date/Time: Sunday, August 14, 2022 at 8:00 am What to expect at your follow-up visit: Physical Assessment Call [phone] if you are unable to keep your appointment time. BREAST CARE: * Wear a snug supportive bra. * For engorgement discomfort: Breast Feeding: * Apply warm moist washcloths * Express milk as needed to relieve engorgement * Wear loose clothing Bottle Feeding: * May apply ice packs * For sore nipples: * Identify correct latch-on * Apply warm moist washcloths before and after nursing * Air dry nipples after nursing * May apply Lansinoh cream to nipples EPISIOTOMY/PERINEAL CARE: * Until bleeding stops, use your olga lidia bottle after urinating * Change your pad frequently throughout the day * You may take sitz baths several times a day (fill your bathtub with warm water and soak for 20 minutes.) Do NOT bathe in the water * No tub baths until seen by your physician - You may shower ACTIVITY: * Rest as much as possible. * Do not exercise or lift anything heavier than your baby (such as laundry or other children.) * Avoid stairs or driving as much as possible. * Do not put anything into the vagina. No douching, tampons, or sexual activity until seen by physician. NOTIFY PHYSICIAN IF YOU HAVE ANY QUESTIONS OR IF ANY OF THE FOLLOWING SYMPTOMS OCCUR: * If your episiotomy or incision becomes red, swollen, or more painful than what you have experienced in the hospital. * If your vaginal bleeding becomes foul smelling. * If your vaginal bleeding becomes more heavy than a period or if your bleeding changes from pink to bright red. However, you may pass an occasional walnut-sized clot once or twice for the first week . * If you experience a sharp, shooting pain in you calves. * If you discover a hard, reddened area on your breast or if you experience flu-like symptoms. DIET: * Eat regular, well-balanced meals. * Drink plenty of fluids daily. If , drink to thirst. Follow-up/Referrals: Veena Trevino CNM [Certified Nurse Leather Grainer] - Discharge Medications: Continued valacyclovir [Valtrex] 500 mg Tablet 500 mg PO BID Date of admission: 08/11/22 06:13 Primary Care Provider: PHYSICIAN,EMPLOYEE'S REPRESENTATIVE Admitting Provider: Lisa Christensen Attending physician on admission: Aziza Pérez Condition: Stable
--- NOTE | 2022-09-09 08:49 | PM.OBDSVD ---
DS: Admitting Diagnosis Discharge Date 08/13/22 Admitting Diagnosis Labor DS: Discharge Diagnosis Discharge Diagnosis (1) Vaginal delivery: Code(s): O80 - Encounter for full-term uncomplicated delivery Status: Acute OB - DS: Summary OB Procedures : None OB Procedures Intrapartum: Spontaneous Vag Delivery OB Procedures: : None Time Spent with Patient Time attestation: Total time spent providing and/or coordinating discharge services: Discharge Plan Discharge Consulting providers: Veena Trevino Discharging Clinician: Aziza Pérez Anticipated Discharge Date/Time: 08/13/22 14:00 Patient Disposition: Home, Self-Care Activity: other - see discharge instructions Diet: regular Wound Care Instructions: follow printed instructions Discharge Instructions: Education: Mom and Baby Guide Given to: Mother Follow-Up: Call your delivering provider's office for an appointment to be seen in: 4 Weeks Mom and baby should come to the [facility] for the follow-up appointment. Appointment Date/Time: Sunday, August 14, 2022 at 8:00 am What to expect at your follow-up visit: Physical Assessment Call [phone] if you are unable to keep your appointment time. BREAST CARE: * Wear a snug supportive bra. * For engorgement discomfort: Breast Feeding: * Apply warm moist washcloths * Express milk as needed to relieve engorgement * Wear loose clothing Bottle Feeding: * May apply ice packs * For sore nipples: * Identify correct latch-on * Apply warm moist washcloths before and after nursing * Air dry nipples after nursing * May apply Lansinoh cream to nipples EPISIOTOMY/PERINEAL CARE: * Until bleeding stops, use your olga lidia bottle after urinating * Change your pad frequently throughout the day * You may take sitz baths several times a day (fill your bathtub with warm water and soak for 20 minutes.) Do NOT bathe in the water * No tub baths until seen by your physician - You may shower ACTIVITY: * Rest as much as possible. * Do not exercise or lift anything heavier than your baby (such as laundry or other children.) * Avoid stairs or driving as much as possible. * Do not put anything into the vagina. No douching, tampons, or sexual activity until seen by physician. NOTIFY PHYSICIAN IF YOU HAVE ANY QUESTIONS OR IF ANY OF THE FOLLOWING SYMPTOMS OCCUR: * If your episiotomy or incision becomes red, swollen, or more painful than what you have experienced in the hospital. * If your vaginal bleeding becomes foul smelling. * If your vaginal bleeding becomes more heavy than a period or if your bleeding changes from pink to bright red. However, you may pass an occasional walnut-sized clot once or twice for the first week . * If you experience a sharp, shooting pain in you calves. * If you discover a hard, reddened area on your breast or if you experience flu-like symptoms. DIET: * Eat regular, well-balanced meals. * Drink plenty of fluids daily. If , drink to thirst. Follow-up/Referrals: Veena Trevino CNM [Certified Nurse Student Officer] - Discharge Medications: Continued valacyclovir [Valtrex] 500 mg Tablet 500 mg PO BID Date of admission: 08/11/22 06:13 Primary Care Provider: PHYSICIAN,NUCLEAR ENGINEERING TECHNICIAN Admitting Provider: Lisa Christensen Attending physician on admission: Aziza Pérez Condition: Stable
== END 2022-08-13 13:33 | disposition home or self-care (01) | DRG 560 ==
LOC: ANHLDR 06:20 → ANHOB2 08-12 17:06 → ANHLDR 08-14 11:35 → ANHOB2 08-14 11:35
PROVIDERS: Advanced Practice Midwife; Admitting Provider Obstetrics & Gynecology; Visit Provider Advanced Practice Midwife
DX: O43.113 Circumvallate placenta, third trimester (principal); O98.32 Other infections with a predominantly sexual mode of transmission complicating childbirth; Z37.0 Single live birth; Z3A.39 39 weeks gestation of pregnancy; A60.09 Herpesviral infection of other urogenital tract; O36.8330 Maternal care for abnormalities of the fetal heart rate or rhythm, third trimester, not applicable or unspecified; O70.0 First degree perineal laceration during delivery
CPT/HCPCS: 36415; 85014; 85018; 85025; 86592; 86850; 86900; 86901; A9270; J2405; J2590; J2795; J3010; J7120

== ENCOUNTER 2022-08-15 06:27 | Day surgery (SDC) | payer OTHER, SELFPAY ==
[2022-08-15] VITALS (9 sets, daily range): BP systolic 100–144; BP diastolic 47–98; PULSE 62–78; RESP 12–18; TEMP 36.3–36.6; O2SAT 96–100
--- NOTE | ~2022-08-15 | CT_ITS ---
CT Abdomen and Pelvis with contrast. History: Nausea and vomiting, abdominal pain. Status post vaginal delivery 08/12/2022.. Spiral CT of the abdomen and pelvis was performed after the administration of intravenous contrast. 1 00 cc of Omnipaque 350 was administered intravenously without complication. Dose reduction technique was used on this scan by utilizing automated exposure control and iterative reconstruction technique. The dose-length product (DLP) was 180.08 mGy-cm. Findings: Scans through the lung bases demonstrate mild atelectatic change. The liver, spleen, pancreas, gallbladder, adrenals and left kidney are within normal limits. Mild ful lness the right renal collecting system noted. Questionable minimal heterogeneity at the lower pole o f the right kidney parenchyma. No evidence of aortic aneurysm. No lymphadenopathy is seen. There is no evidence of bowel obstruction. There is no evidence to suggest acute appendicitis or dive rticulitis. Images through the pelvis were performed. Uterus is enlarged, consistent with recent state. There is some heterogeneous material within the endometrial cavity, which could reflect blood product s. No ascites is seen. Impression: Enlarged uterus, consistent with recent state. Probable blood products in the endometrial ca vity. There are scattered areas of enhancement, and retained products of conception could be a differ ential consideration. Correlate clinically. Consider ultrasound for further evaluation as indicated. Questionable minimal heterogeneity at the lower pole the right kidney. Subtle/early pyelonephritis is a potential consideration. Correlate with urinalysis and symptomatology. Mild fullness of the right renal collecting system, possibly related to recent . Reviewed, dictated and finalized at location . 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 Probable blood products in the endometrial cavity. There are scattered areas of enhancement, and retai vickey products of conception could be a differential consideration. Correlate cli nically. Consider ultrasound for further evaluation as indicated. Questionable minimal heterogeneity at the lower pole the right kidney. Subtle/e devora pyelonephritis is a potential consideration. Correlate with urinalysis and symptomatology. Mild fullness of the right renal collecting system, possibly related to recent .
--- NOTE | ~2022-08-15 | US_ITS ---
Pelvic ultrasound. Clinical History: Retained products of conception, recent vaginal delivery Technique: Realtime transabdominal and transvaginal scanning of the pelvis was performed. Color flow Doppler and Doppler spectral analysis were performed. Findings: The uterus is anteverted. The endometrial stripe has a thickness of 24 mm. There are exten sive areas of vascular flow within the endometrial contents on color imaging, suspicious for retained product of conception. No focal myometrial mass is identified. The right ovary measures 1.2 x 2.2 x 1.0 cm. No significant right ovarian or adnexal mass is seen. V ascular flow present in the right ovary on Doppler spectral analysis. The left ovary is not visualized. No significant left ovarian or adnexal mass is seen. There is no evidence of free fluid in the cul de sac. Impression: Findings suspicious for retained products of conception, as detailed above. Reviewed, dictated and finalized at [facility]. 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
[2022-08-15] MEDS: SODIUM CHLORIDE 0.9% IV 1,000 ML 999 ML IV CONT ×2 (07:00→09:25)
[2022-08-15] MEDS: ONDANSETRON INJ 4 MG/2 ML VIAL IV PUSH (07:00)
--- NOTE | 2022-08-15 07:10 | ED.GENADULT ---
HPI - General Adult General Chief complaint: Nausea/Vomiting/Diarrhea Stated complaint: vomiting Time Seen by Provider: 08/15/22 06:48 History of Present Illness HPI narrative: 21-year-old female that had a vaginal delivery on 08/12 presents to the emergency department for evaluation of nausea vomiting and increased abdominal cramping. Patient reported no complications from her delivery. Patient did have a first-degree perineal laceration requiring repair by Vicryl. Patient reports that last night she did have a large clot that was passed but that she is only had serosanguineous fluid since. Patient states that she is having some left upper quadrant abdominal pain along with lower abdominal pain. Related Data Home Medications Medication Instructions Recorded Confirmed valacyclovir 500 mg tablet 500 mg PO BID 07/26/22 07/26/22 (Valtrex) Allergies Allergy/AdvReac Type Severity Reaction Status Date / Time amoxicillin [From Augmentin] Allergy Other Verified 08/15/22 11:06 clavulanic acid Allergy Other Verified 08/15/22 11:06 [From Augmentin] ferrous sulfate Allergy Rash Verified 08/15/22 11:06 Penicillins Allergy Other Verified 08/15/22 11:06 Review of Systems Review of Systems: CONSTITUTIONAL: Denies fever, chills, or sweats. EYES: Denies visual changes, redness, or discharge. ENT: Denies rhinorrhea, congestion, sore throat, or otalgia. CARDIOVASCULAR: Denies chest pain, palpitations, or edema. RESPIRATORY: Denies cough or dyspnea. GASTROINTESTINAL: See HPI GENITOURINARY: See HPI SKIN: Denies rash or itching. MUSCULOSKELETAL: Denies back pain, joint pain, or myalgia. NEUROLOGIC: Denies headache, numbness, or weakness. [facility] Past Medical History Medical History No active medical problems Social History Social History Smoking status: Former smoker Smoking end date: 11/19/21 Substance use: never Lack of Transportation: No Lack of Food: Never True Current Housing: I Have Housing Concerned About Future Housing: No Difficulty Paying Gas/Electric Bills: No Difficulty Paying for Meds: No Currently Unemployed: No Education: Grade School Difficulty w/ Childcare or Family Care: No Spiritual care concerns: No Exam Narrative: APPEARANCE: Well appearing, no pain, no distress, well-nourished. HEAD: normocephalic, atraumatic. EYES: PERRLA/EOMI, conjunctivae clear. NOSE: Normal no drainage THROAT: Pharynx clear, no exudate. NECK: Supple. No adenopathy, no masses. RESPIRATORY: Airway patent, respirations nonlabored. Clear to auscultation bilaterally, no rales, rhonchi, wheezing. CARDIOVASCULAR: Regular rate and rhythm without murmurs rubs or gallops. ABDOMINAL: Lower abdominal tenderness to palpation and left upper quadrant tenderness to palpation MUSCULOSKELETAL: Moves all extremities. Strength/ROM intact, No edema, No calf tenderness. NEURO: Alert. Cranial nerves II through XII intact. Grossly intact SKIN: Warm, dry. Normal Color Course Course Emergency Course: Patient was treated with IV fluids and IV Zofran for her symptoms. Patient declined any medication for pain control at this time. Labs were ordered along with a CT abdomen pelvis with contrast. CT scan was concerning for pyelonephritis was also concerned about retained products of conception. Ultrasound was ordered to further evaluate products conception and ultrasound did show evidence of retained products of conception. This was discussed with Dr. Christensen. Dr. Christensen does plan to take the patient for a D&C today at noon. Patient was updated on the results of the work-up and plan for D&C. All questions and concerns were addressed. Patient states she is not currently breast-feeding and is requesting medication for pain control. Patient will be treated with IV Dilaudid. Vital Signs Vital signs: Vital Signs
[2022-08-15 07:15] LABS: Basophils Absolute Auto 0.1 K/mm3 (0.0-0.1); Basophils Percent Auto 0.7 % (0.2-1.2); Eosinophils Absolute Auto 0.4 K/mm3 (0-0.3); Eosinophils Percent Auto 4.3 % (0-4.4); Hematocrit 31.3 % (37.0-47.0); Hemoglobin 9.9 g/dL (12.0-15.0); Immature Granulocyte Absolute 0.13 K/mm3 (0.00-0.031); Immature Granulocyte Percent A 1.4 % (0-0.5); Lymphocytes Absolute Auto 1.44 K/mm3 (0.9-3.2); Lymphocytes Percent Auto 15.4 % (18.3-44.2); Mean Corpuscular HGB Conc 31.6 g/dl (32-36); Mean Corpuscular Hemoglobin 27.8 pg (26-34); Mean Corpuscular Volume 87.9 fl (80-100); Monocytes Absolute Auto 0.6 K/mm3 (0.1-0.6); Monocytes Percent Auto 6.1 % (2.6-8.5); Neutrophils Absolute Auto 6.7 K/mm3 (1.3-6.7); Neutrophils Percent Auto 72.1 % (45.5-73.1); Platelet Count Result 215 k/mm3 (150-375); Red Blood Count 3.56 M/mm3 (4.2-5.4); White Blood Count 9.4 K/mm3 (4.5-10.0)
[2022-08-15 07:20] LABS: Alanine Aminotransferase 13 U/L (6-35); Albumin Level 3.4 g/dL (3.5-5.1); Alkaline Phosphatase 139 U/L (38-126); Anion Gap 2 mmol/L (8-16); Aspartate Amino Transferase 24 U/L (14-36); Bilirubin,Total 0.7 mg/dL (0.2-1.3); Blood Urea Nitrogen 7 mg/dL (7-17); Calcium 8.1 mg/dL (8.4-10.2); Carbon Dioxide 29 mmol/L (22-30); Chloride 108 mmol/L (98-107); Estimated CRCL calculation 117 ml/min; Estimated Glomerular Filt Rate > 60; Glucose 90 mg/dL (65-110); Potassium 3.2 mmol/L (3.4-5.0); Sodium 139 mmol/L (137-145)
[2022-08-15 07:23] LABS: Prothrombin Time 12.4 Seconds (11.1-14.7)
[2022-08-15 07:24] LABS: Partial Thromboplastin Time 27.7 SECONDS (22.3-36.8)
[2022-08-15] MEDS: HYDROmorphone HCL INJ (*CRX) 1 MG/ML SYR 0.5 MG IV PUSH (09:25)
[2022-08-15 09:30] LABS: Appearance Urine Slightly Cloudy (Clear); Bilirubin Urine Negative (Negative); Blood Urine 3+ (Negative); Color Urine Light Yellow (Yellow); Glucose Urine UA Negative (Negative); Ketones Urine Negative (Negative); Leukocyte Esterase Ur Trace LEU/UL (Negative); Nitrate Urine Negative (Negative); Protein Urine Trace mg/dL (Negative)
[2022-08-15 09:35] LABS: Mucus Urine Rare /lpf; RBC Urine 21-50 /hpf (0-2); Squamous Epithelial Cell Urine Moderate /hpf (Few); WBC Urine 31-50 /hpf
[2022-08-15 09:37] LABS: Add Urine Microscopic? YES
--- NOTE | 2022-08-15 09:57 | WPDANESEPPF ---
Anes - Initial Pre Proc Eval Procedure: Operation Date: 08/15/22 14:00 Proposed Procedures p Suction Dilatation and Curettage - Lisa Christensen MD Date/Time: 08/15/22 09:57 Surgeon: Lisa Christensen MD Pre Op Diagnosis: vomiting Patient Data Age: 21 Gender: F Height: 1.57 m Weight: 56.7 kg Last Vital Signs Temp 36.3 C L 08/15/22 06:30 Pulse 69 08/15/22 09:25 Resp 18 08/15/22 09:25 BP 123/93 H 08/15/22 09:25 Pulse Ox 100 08/15/22 09:25 O2 Del Method Room Air 08/15/22 06:30 Allergies Allergy/AdvReac Type Severity Reaction Status Date / Time amoxicillin [From Augmentin] Allergy Other Verified 08/15/22 11:06 clavulanic acid Allergy Other Verified 08/15/22 11:06 [From Augmentin] ferrous sulfate Allergy Rash Verified 08/15/22 11:06 Penicillins Allergy Other Verified 08/15/22 11:06 Home Medications Medication Instructions Recorded Confirmed Type valacyclovir 500 mg tablet 500 mg PO BID 07/26/22 07/26/22 History (Valtrex) Laboratory Tests 08/15/22 08/15/22 08/15/22 06:54 06:54 06:54 WBC 9.4 K/mm3 K/mm3 (4.5-10.0) RBC 3.56 M/mm3 L M/mm3 (4.2-5.4) Hgb 9.9 g/dL L g/dL (12.0-15.0) Hct 31.3 % L % (37.0-47.0) MCV 87.9 fl fl (80-100) MCH 27.8 pg pg (26-34) MCHC 31.6 g/dl L g/dl (32-36) RDW 19.0 % H % (11.5-14.5) Plt Count 215 k/mm3 k/mm3 (150-375) MPV 10.0 fl fl (7.4-10.4) Immature Gran % (Auto) 1.4 % H % (0-0.5) Neut % (Auto) 72.1 % % (45.5-73.1) Lymph % (Auto) 15.4 % L % (18.3-44.2) [place] % (Auto) 6.1 % % (2.6-8.5) Eos % (Auto) 4.3 % % (0-4.4) Baso % (Auto) 0.7 % % (0.2-1.2) Lymph # (Auto) 1.44 K/mm3 K/mm3 (0.9-3.2) [place] # (Auto) 0.6 K/mm3 K/mm3 (0.1-0.6) Eos # (Auto) 0.4 K/mm3 H K/mm3 (0-0.3) Baso # (Auto) 0.1 K/mm3 K/mm3 (0.0-0.1) Abs Immat Gran (auto) 0.13 K/mm3 H K/mm3 (0.00-0.031) Absolute Neuts (auto) 6.7 K/mm3 K/mm3 (1.3-6.7) Absolute Nucleated RBC 0.0 K/mm3 K/mm3 (0.0-0.012) Nucleated RBC % 0.0 % % (0.0-0.2) PT 12.4 Seconds Seconds (11.1-14.7) INR 1.0 APTT 27.7 SECONDS SECONDS (22.3-36.8) Sodium 139 mmol/L mmol/L (137-145) Potassium 3.2 mmol/L L mmol/L (3.4-5.0) Chloride 108 mmol/L H mmol/L (98-107) Carbon Dioxide 29 mmol/L mmol/L (22-30) Anion Gap 2 mmol/L L mmol/L (8-16) BUN 7 mg/dL mg/dL (7-17) Creatinine 0.50 mg/dL L mg/dL (0.7-1.0) Estim Creat Clear Calc 117 ml/min ml/min Estimated GFR > 60 (59 - ) Glucose 90 mg/dL mg/dL (65-110) Calcium 8.1 mg/dL L mg/dL (8.4-10.2) Total Bilirubin 0.7 mg/dL mg/dL (0.2-1.3) AST 24 U/L U/L (14-36) ALT 13 U/L U/L (6-35) Alkaline Phosphatase 139 U/L H U/L (38-126) Total Protein 6.0 g/dL L g/dL (6.3-8.2) Albumin 3.4 g/dL L g/dL (3.5-5.1) Urine Color Urine Appearance Urine pH Ur Specific [place] Urine Protein Urine Glucose (UA) Urine Ketones Ur Blood (Man) Urine Nitrate Urine Bilirubin Urine Urobilinogen Leukocyte Esterase Rfl Urine RBC Urine WBC Ur Squamous Epith Cells Urine Mucus 08/15/22 09:21 WBC RBC Hgb Hct MCV MCH MCHC RDW Plt Count MPV Immature Gran % (Auto) Neut % (Auto) Lymph % (Auto) [place] % (Auto) Eos % (Auto) Baso % (Auto) Lymph # (Auto) [place] # (Auto) Eos # (Auto) Baso # (Auto)
--- NOTE | 2022-08-15 10:47 | PM.IMHP ---
H&P: HPI History of Present Illness Date/Time: 08/15/22 10:47 Chief Complaint: vaginal bleeding Narrative: this patient is a 21-year-old female who presented emergency department complaining of vaginal bleeding. She is 4-5 days . After evaluation by the emergency department with radiologic evaluation it appears the patient has retained products conception. We agreed to proceed with this suction D&C. She understands the procedure well. She understands the risk the procedure. She understands that injuries may occur that result in hospitalization, more surgery, and severe illness. She understands risk of hemorrhage infection Review of Systems Review of Systems: All systems reviewed & are unremarkable except as noted in HPI and below Constitutional: Constitutional: Denies chills, Denies fatigue, Denies fever(s) and Denies weakness Eyes: Eyes: Denies blurry vision, Denies change in vision, Denies loss of peripheral vision, Denies loss of vision, Denies other visual disturbances and Denies eye pain ENT: Denies vertigo, Denies dizziness, Denies hearing loss, Denies mouth pain, Denies nasal obstruction, Denies neck mass and Denies neck pain Cardiovascular: Cardiovascular: Denies chest pain, Denies diaphoresis, Denies syncope, Denies leg edema and Denies dyspnea Respiratory: Respiratory: Denies chest congestion, Denies cough, Denies hemoptysis, Denies dyspnea and Denies wheezing Gastrointestinal: Gastrointestinal: Denies abdominal pain, Denies constipation, Denies diarrhea, Denies nausea and Denies vomiting Genitourinary: Genitourinary: Denies hematuria, Denies change in libido, Denies nocturia, Denies genital lesions, Denies flank pain and Denies urinary urgency Musculoskeletal: Musculoskeletal: Denies abnormal gait, Denies back pain, Denies myalgias, Denies arthralgias, Denies joint swelling, Denies muscle weakness and Denies neck pain Integumentary/Breasts: Skin/Breast: Denies swelling, Denies breast pain, Denies breast mass, Denies dry skin, Denies nipple discharge, Denies unusual bruising and Denies jaundice Neurologic: Denies Neuro-related abnormal movements, Denies Abnormal speech present, Denies abnormal gait, Denies behavioral changes, Denies confusion, Denies vertigo, Denies dizziness, Denies syncope, Denies loss of vision, Denies memory loss, Denies convulsions and Denies weakness Psychiatric: Psychiatric: Denies abnormal sleep pattern, Denies behavioral changes, Denies change in libido, Denies confusion, Denies depression, Denies anhedonia and Denies memory loss Endocrine: Endocrine: Reports no additional endocrine complaints, Denies change in libido and Denies fatigue Hematologic/Lymphatic: Hematologic/Lymphatic: Reports no additional hematologic/lymphatic complaints Allergic/Immunologic: Allergic/Immunologic: Reports no additional allergic/immunologic complaints and Denies wheezing PMFSH Past Medical History Medical History No active medical problems Social History Social History Smoking status: Former smoker Smoking end date: 11/19/21 Substance use: never Lack of Transportation: No Lack of Food: Never True Current Housing: I Have Housing Concerned About Future Housing: No Difficulty Paying Gas/Electric Bills: No Difficulty Paying for Meds: No Currently Unemployed: No Education: Grade School Difficulty w/ Childcare or Family Care: No Spiritual care concerns: No Meds Home Medications and Allergies Home Medications Medication Instructions Recorded Confirmed Type valacyclovir 500 mg tablet 500 mg PO BID 07/26/22 07/26/22 History (Valtrex) Allergies Allergy/AdvReac Type Severity Reaction Status Date / Time amoxicillin [From Augmentin] Allergy Other Verified 06/18/22 14:32 clavulanic acid Allergy Other Verified 06/18/22 14:32 [From Augmentin]
--- NOTE | 2022-08-15 10:51 | WPDHPUPDATE1 ---
History and Physical Update Update Date/Time: 08/15/22 10:51 History and Physical has been reviewed, including an updated exam of the patient. There are NO changes in the patient's condition. Risks, benefits, and alternatives have been discussed and questions answered. Patient agrees to proceed with procedure.
[2022-08-15] MEDS: LACTATED RINGERS 1,000 ML 30 ML IV CONT (13:01)
--- NOTE | 2022-08-15 13:15 | P.OP_ITS ---
Procedure Note - Detailed Date of Procedure 08/15/22 Pre-op Diagnosis vomiting Post-op Diagnosis Same Procedure Performed Suction D&C Surgeon Lisa Christensen MD Anesthesia MAC Indications missed Findings normal-appearing vulva vagina and cervix post . Moderate amount of products conception within the uterus. 20 cm uterus Description of Procedure the patient was taken the operating room. She was prepped and draped in dorsal lithotomy position after induction of mac anesthesia. A speculum was placed in the vagina. Cervix grasped with tenaculum. The cervix was dilated to about 1 cm Using Gonzalez dilators. A 8. Sammarinese curved curette was used to perform suction D&C. The curette was introduced and vacuum was applied. The curette was removed over all surfaces of the intrauterine cavity multiple times. This was done until all the surfaces were clear and had the familiar grainy texture they can be felt through the instrument. A sharp curette was then used to curettage all the surfaces. The suction cup was then reapplied 1 more time to remove any debris. The instruments were removed. The speculum and tenaculum were removed. The patient tolerated the procedure well. She was taken recovery room stable condition. Estimated Blood Loss -400.0 Drains No Packing No Pathology Yes Complications No immediate complications Condition Stable Disposition PACU
[2022-08-15] MEDS: KETOROLAC 30 MG/ML VIAL (*BKC) IV PUSH (13:19)
[2022-08-15] MEDS: fentaNYL CITRATE INJ (*CRX) 100 MCG/2 ML VIAL 25 MCG IV PUSH ×4 (13:30→13:39)
[2022-08-15] MEDS: oxyCODONE HCL (*CRX) 5 MG TAB IR PO (13:58)
== END 2022-08-15 14:25 | disposition home or self-care (01) ==
LOC: ANHED 09:04 → ANHSURGERY 09:07
PROVIDERS: Emergency Medicine; Emergency Provider Emergency Medicine; PCP Family Medicine; Visit Provider Obstetrics & Gynecology
PROC: (CPT 59160; principal; 2022-08-15 14:00)
DX: O72.2 Delayed and secondary postpartum hemorrhage (principal); O86.20 Urinary tract infection following delivery, unspecified; N39.0 Urinary tract infection, site not specified; Z87.891 Personal history of nicotine dependence
CPT/HCPCS: 59160; 36415; 74177; 76856; 80053; 81001; 85025; 85610; 85730; 87086; 87088; 88305; 96361; 96374; 96375; 99285; A9270; J0131; J1100; J1170; J1885; J1956; J2250; J2405; J2704; J3010; J7030; J7120; Q9967

== ENCOUNTER 2023-08-10 21:38 | Observation (INO) | payer OTHER, SELFPAY ==
[2023-08-10 21:39] VITALS: BP 118/78; PULSE 147; RESP 18; TEMP 36.2; O2SAT 100
[2023-08-10 21:46] VITALS: PULSE 92; RESP 18; O2SAT 100; BMI 20.6
[2023-08-10 22:06] LABS: Basophils Percent Auto 0.5 % (0.2-1.2); Eosinophils Absolute Auto 0.1 K/mm3 (0-0.3); Hematocrit 29.2 % (37.0-47.0); Hemoglobin 8.8 g/dL (12.0-15.0); Immature Granulocyte Absolute 0.01 K/mm3 (0.00-0.031); Immature Granulocyte Percent A 0.2 % (0-0.5); Lymphocytes Absolute Auto 2.21 K/mm3 (0.9-3.2); Lymphocytes Percent Auto 40.4 % (18.3-44.2); Mean Corpuscular HGB Conc 30.1 g/dl (32-36); Mean Corpuscular Hemoglobin 25.8 pg (26-34); Mean Corpuscular Volume 85.6 fl (80-100); Mean Platelet Volume 10.4 fl (7.4-10.4); Monocytes Absolute Auto 0.4 K/mm3 (0.1-0.6); Monocytes Percent Auto 6.4 % (2.6-8.5); Neutrophils Absolute Auto 2.8 K/mm3 (1.3-6.7); Neutrophils Percent Auto 50.5 % (45.5-73.1); Platelet Count Result 307 k/mm3 (150-375); Red Blood Count 3.41 M/mm3 (4.2-5.4); White Blood Count 5.5 K/mm3 (4.5-10.0)
--- NOTE | 2023-08-10 22:34 | ED.PREGNANCY ---
HPI - General Chief complaint: Vaginal Bleeding Stated complaint: vaginal bleeding Time Seen by Provider: 08/10/23 22:18 Source: patient Mode of arrival: ambulatory Limitations: no limitations History of Present Illness HPI Narrative: This is a 22 year old female that presents to the ER for vaginal bleeding. Reports ongoing over the last week. Reports her LMP was 05/31/23. Reports she was seen at another facility 3 days ago and had quantitative beta HCG in the 9000 range. They did not visualize a fetus on US, but saw blood clots in the uterus. She was able to be discharged. Presented tonight for worsening bleeding and lightheadedness. Her INTERNET MARKETING MANAGER is Dr. Christensen. Denies fevers or vomiting. Related Data Home Medications Medication Instructions Recorded Confirmed valacyclovir 500 mg tablet 500 mg PO BID 07/26/22 07/26/22 (Valtrex) Allergies Allergy/AdvReac Type Severity Reaction Status Date / Time amoxicillin [From Augmentin] Allergy Other Verified 08/10/23 21:43 clavulanic acid Allergy Other Verified 08/10/23 21:43 [From Augmentin] ferrous sulfate Allergy Rash Verified 08/10/23 21:43 Penicillins Allergy Other Verified 08/10/23 21:43 Review of Systems Review of Systems: CONSTITUTIONAL: Denies fever GASTROINTESTINAL: Reports pelvic cramping. Denies nausea, vomiting All systems reviewed & are unremarkable except as noted in HPI and below PMFSH Past Medical History Medical History No active medical problems Surgical History Surgical History (Updated 08/10/23 @ 23:38 by Patrick Alicea MD) History of D&C Social History Social History Smoking status: Former smoker Smoking end date: 11/19/21 Substance use: never Lack of Transportation: No Lack of Food: Never True Current Housing: I Have Housing Concerned About Future Housing: No Difficulty Paying Gas/Electric Bills: No Difficulty Paying for Meds: No Currently Unemployed: No Education: Grade School Difficulty w/ Childcare or Family Care: No Spiritual care concerns: No Exam Narrative: GENERAL: Pale, well-nourished, and in no acute distress. HEAD: Normocephalic, atraumatic. EYES: EOMI. CHEST: Clear to auscultation. No respiratory distress. No wheezes rales or rhonchi HEART: Tachycardic, regular rhythm. No murmur heard. Normal peripheral pulses. ABDOMEN: Soft, nontender, nondistended, normal active bowel sounds. EXTREMITIES: Normal range of motion. No edema. SKIN: Warm, dry, no rash. NEURO: No focal deficits. Alert and oriented x3. PSYCH: Normal mood and affect PELVIC: Large amount of dark red blood in the vaginal vault with blood clots. Able to eventually clear away bleeding and visualize the cervix with tissue passing. Blood continues to steadily ooze from the cervix Course Course Emergency Course: Patient updated on her workup and need for likely OR for D&C Consultations Consultation #1: Spoke with Dr. Last about patient and workup. Patient will be taken to the OR for D&C Date: 08/10/23 Vital Signs Vital signs: Vital Signs Temperature 97.2 F L 08/10/23 21:39 Pulse Rate 147 H 08/10/23 21:39 Respiratory Rate 18 08/10/23 21:39 Blood Pressure 118/78 08/10/23 21:39 Pulse Oximetry 100 08/10/23 21:39 Oxygen Delivery Room Air 08/10/23 21:39 Temperature 97.2 F L 08/10/23 21:39 Pulse Rate 147 H 08/10/23 21:39 Respiratory Rate 18 08/10/23 21:39 Blood Pressure 118/78 08/10/23 21:39 Pulse Oximetry 100 08/10/23 21:39 Oxygen Delivery Room Air 08/10/23 21:39 MDM - OB/Uterine Contractions MDM Narrative Medical decision making narrative: Patient presents to the emergency department for vaginal bleeding. She is about 10 weeks by LMP. Reports she has had bleeding over the last week. She was seen at another ER and had a quantitative beta HCG in the 90
[2023-08-10 23:11] VITALS: BP 130/95; PULSE 119; RESP 20; O2SAT 100
[2023-08-10] MEDS: SODIUM CHLORIDE 0.9% IV 1,000 ML 999 ML (23:11)
--- NOTE | 2023-08-10 23:25 | WPDANESEPP ---
Anes - Eval Pre Procedure Procedure: Labor epidural Date/Time: 08/10/23 23:25 Surgeon: tony Preop Diagnosis: missed ab Pre Op Diagnosis: vaginal bleeding Patient Data Age: 22 Gender: F Height: 1.57 m Weight: 49 kg Last Vital Signs Temp 36.2 C L 08/10/23 21:39 Pulse 119 H 08/10/23 23:11 Resp 20 08/10/23 23:11 BP 130/95 H 08/10/23 23:11 Pulse Ox 100 08/10/23 23:11 O2 Del Method Room Air 08/10/23 21:39 Allergies Allergy/AdvReac Type Severity Reaction Status Date / Time amoxicillin [From Augmentin] Allergy Other Verified 08/10/23 21:43 clavulanic acid Allergy Other Verified 08/10/23 21:43 [From Augmentin] ferrous sulfate Allergy Rash Verified 08/10/23 21:43 Penicillins Allergy Other Verified 08/10/23 21:43 Home Medications Medication Instructions Recorded Confirmed Type valacyclovir 500 mg tablet 500 mg PO BID 07/26/22 07/26/22 History (Valtrex) Laboratory Tests 08/10/23 21:55 WBC 5.5 K/mm3 (4.5-10.0) RBC 3.41 L M/mm3 (4.2-5.4) Hgb 8.8 L g/dL (12.0-15.0) Hct 29.2 L % (37.0-47.0) MCV 85.6 fl (80-100) MCH 25.8 L pg (26-34) MCHC 30.1 L g/dl (32-36) RDW 13.0 % (11.5-14.5) Plt Count 307 k/mm3 (150-375) MPV 10.4 fl (7.4-10.4) Immature Gran % (Auto) 0.2 % (0-0.5) Neut % (Auto) 50.5 % (45.5-73.1) Lymph % (Auto) 40.4 % (18.3-44.2) [place] % (Auto) 6.4 % (2.6-8.5) Eos % (Auto) 2.0 % (0-4.4) Baso % (Auto) 0.5 % (0.2-1.2) Lymph # (Auto) 2.21 K/mm3 (0.9-3.2) [place] # (Auto) 0.4 K/mm3 (0.1-0.6) Eos # (Auto) 0.1 K/mm3 (0-0.3) Baso # (Auto) 0.0 K/mm3 (0.0-0.1) Abs Immat Gran (auto) 0.01 K/mm3 (0.00-0.031) Absolute Neuts (auto) 2.8 K/mm3 (1.3-6.7) Absolute Nucleated RBC 0.0 K/mm3 (0.0-0.012) Nucleated RBC % 0.0 % (0.0-0.2) Beta HCG, Quant 7843.20 mIU/ML Blood Type O Positive Antibody Screen Negative Screen TNP Baby's Blood Type TNP Baby's WILLIAMS TNP Doses of RhIg Required 0 Patient hx anesthesia problems: none Family hx anesthesia problems: none Results Review: All pre-operative results and documents have been reviewed as part of the pre-operative evaluation. [facility] Past Medical History Medical History No active medical problems Social History Social History Smoking status: Former smoker Smoking end date: 11/19/21 Substance use: never Lack of Transportation: No Lack of Food: Never True Current Housing: I Have Housing Concerned About Future Housing: No Difficulty Paying Gas/Electric Bills: No Difficulty Paying for Meds: No Currently Unemployed: No Education: Grade School Difficulty w/ Childcare or Family Care: No Spiritual care concerns: No Exam Day of Procedure 08/10/23 23:25
[2023-08-10] MEDS: MORPHINE SULFATE (*CRX) 4 MG/ML INJ IV PUSH (23:27)
[2023-08-10] MEDS: ONDANSETRON INJ 4 MG/2 ML VIAL IV PUSH (23:27)
[2023-08-10 23:28] VITALS: BP 112/78; PULSE 122; RESP 20; O2SAT 100
[2023-08-10 23:35] VITALS: BP 103/70; PULSE 96; RESP 20; TEMP 35.8; O2SAT 100
--- NOTE | 2023-08-10 23:37 | WPDANESEPPF ---
Anes - Initial Pre Proc Eval Procedure: Operation Date: 08/10/23 23:45 Proposed Procedures p D&C Suction and Sharp - Federico Last MD Date/Time: 08/10/23 23:37 Pre Op Diagnosis: vaginal bleeding Patient Data Age: 22 Gender: F Height: 1.57 m Weight: 49 kg Last Vital Signs Temp 36.2 C L 08/10/23 21:39 Pulse 122 H 08/10/23 23:28 Resp 20 08/10/23 23:28 BP 112/78 08/10/23 23:28 Pulse Ox 100 08/10/23 23:28 O2 Del Method Room Air 08/10/23 21:39 Allergies Allergy/AdvReac Type Severity Reaction Status Date / Time amoxicillin [From Augmentin] Allergy Other Verified 08/10/23 21:43 clavulanic acid Allergy Other Verified 08/10/23 21:43 [From Augmentin] ferrous sulfate Allergy Rash Verified 08/10/23 21:43 Penicillins Allergy Other Verified 08/10/23 21:43 Home Medications Medication Instructions Recorded Confirmed Type valacyclovir 500 mg tablet 500 mg PO BID 07/26/22 07/26/22 History (Valtrex) Laboratory Tests 08/10/23 21:55 WBC 5.5 K/mm3 (4.5-10.0) RBC 3.41 L M/mm3 (4.2-5.4) Hgb 8.8 L g/dL (12.0-15.0) Hct 29.2 L % (37.0-47.0) MCV 85.6 fl (80-100) MCH 25.8 L pg (26-34) MCHC 30.1 L g/dl (32-36) RDW 13.0 % (11.5-14.5) Plt Count 307 k/mm3 (150-375) MPV 10.4 fl (7.4-10.4) Immature Gran % (Auto) 0.2 % (0-0.5) Neut % (Auto) 50.5 % (45.5-73.1) Lymph % (Auto) 40.4 % (18.3-44.2) [place] % (Auto) 6.4 % (2.6-8.5) Eos % (Auto) 2.0 % (0-4.4) Baso % (Auto) 0.5 % (0.2-1.2) Lymph # (Auto) 2.21 K/mm3 (0.9-3.2) [place] # (Auto) 0.4 K/mm3 (0.1-0.6) Eos # (Auto) 0.1 K/mm3 (0-0.3) Baso # (Auto) 0.0 K/mm3 (0.0-0.1) Abs Immat Gran (auto) 0.01 K/mm3 (0.00-0.031) Absolute Neuts (auto) 2.8 K/mm3 (1.3-6.7) Absolute Nucleated RBC 0.0 K/mm3 (0.0-0.012) Nucleated RBC % 0.0 % (0.0-0.2) Beta HCG, Quant 7843.20 mIU/ML Blood Type O Positive Antibody Screen Negative Screen TNP Baby's Blood Type TNP Baby's WILLIAMS TNP Doses of RhIg Required 0 Patient hx anesthesia problems: none Family hx anesthesia problems: none Results Review: All pre-operative results and documents have been reviewed as part of the pre-operative evaluation. [facility] Past Medical History Medical History (Updated 08/10/23 @ 23:38 by Patrick Alicea MD) Anemia Retained products of conception Surgical History Surgical History (Updated 08/10/23 @ 23:38 by Patrick Alicea MD) History of D&C Social History Social History Smoking status: Former smoker Smoking end date: 11/19/21 Substance use: never Lack of Transportation: No Lack of Food: Never True Current Housing: I Have Housing Concerned About Future Housing: No Difficulty Paying Gas/Electric Bills: No Difficulty Paying for Meds: No Currently Unemployed: No Education: Grade School Difficulty w/ Childcare or Family Care: No Spiritual care concerns: No Anes - Eval Final PreProcedure Day of Procedure 08/10/23 23:37 Patient weight: thin Heart: regular rate and rhythm Lungs: clear to auscultation Airway: Mallampati scale class II Neurological: alert and oriented Last oral intake: 4 hours ASA classification: II Emergent: yes Anesthetic plan: proceed Anesthesia type and monitoring: general ETT and standard monitoring Results Review: All pre-operative results and documents have been reviewed as part of the pre-operative evaluation. Informed Consent: The patient's anesthetic plan and its attendant risks and benefits were discussed with the patient/family/POA. Questions were solicited and answers provided to the satisfaction of the patient/family/POA.
--- NOTE | 2023-08-10 23:38 | PM.IMHP ---
H&P: HPI History of Present Illness Date/Time: 08/10/23 23:38 Chief Complaint: vaginal bleeding Narrative: Patient is a 22 year old at 10 weeks per patient report who presents for worsening vaginal bleeding. She was seen in an outside ER 1 week ago after she began having mild vaginal bleeding in the setting of 1st trimester of , at which time BSUS demonstrated no embryo or gestational sac, however there was blood and clot in the uterus per the patient. She was diagnosed with a miscarriage and sent home. She reports that today her bleeding has worsened significantly, bleeding through multiple pads in an hour. She reports dizziness and difficulty with walking. She denies unilateral abdominal pain, fevers or chills. She reports lower abdominal cramping. Review of Systems Review of Systems: All systems reviewed & are unremarkable except as noted in HPI and below PMFSH Past Medical History Medical History Anemia Retained products of conception Surgical History Surgical History History of D&C Social History Social History Smoking status: Former smoker Smoking end date: 11/19/21 Substance use: never Lack of Transportation: No Lack of Food: Never True Current Housing: I Have Housing Concerned About Future Housing: No Difficulty Paying Gas/Electric Bills: No Difficulty Paying for Meds: No Currently Unemployed: No Education: Grade School Difficulty w/ Childcare or Family Care: No Spiritual care concerns: No Meds Home Medications and Allergies Home Medications Medication Instructions Recorded Confirmed Type valacyclovir 500 mg tablet 500 mg PO BID 07/26/22 07/26/22 History (Valtrex) Allergies Allergy/AdvReac Type Severity Reaction Status Date / Time amoxicillin [From Augmentin] Allergy Other Verified 08/10/23 21:43 clavulanic acid Allergy Other Verified 08/10/23 21:43 [From Augmentin] ferrous sulfate Allergy Rash Verified 08/10/23 21:43 Penicillins Allergy Other Verified 08/10/23 21:43 Vital Signs Vital Signs - 24 hr 08/10/23 21:39 08/10/23 23:11 08/10/23 23:28 Temperature 97.2 F L Pulse Rate 147 H 119 H 122 H Respiratory Rate 18 20 20 Blood Pressure 118/78 130/95 H 112/78 Pulse Oximetry 100 100 100 Oxygen Delivery Room Air Exam Const: General: comfortable and in distress mild Other: pale appearing HENMT: Mouth: Yes moist mucous membranes Eyes: General: appearance normal, both eyes and all related structures Resp: Effort & Inspection: normal respiratory effort Cardio: Rate: tachycardic Rhythm: regular rhythm GI: GI Palp: Yes Soft to palpation : Other: exam performed by PA, large amount of blood and clot in the vagina, some tissue seen at external os with continued bleeding from inside the uterus Extrem: General: normal to inspection H&P: Results Labs Labs: Short CBC 08/10/23 Range/Units 21:55 WBC 5.5 (4.5-10.0) K/mm3 Hgb 8.8 L (12.0-15.0) g/dL Hct 29.2 L (37.0-47.0) % Plt Count 307 (150-375) k/mm3 Imaging US - abdomen: My impression: Bedside US performed by myself, large amount of heterogenous material in the uterus with no visible embryo or gestational sac Assessment and Plan Assessment and plan (1) Incomplete miscarriage: Code(s): O03.4 - Incomplete spontaneous without complication Status: Acute Assessment and Plan: - diagnosed with miscarriage at OSH 1 week ago, quant hCG per patient ~9000 - worsening bleeding today, now feeling lightheaded and tachycardic to the 140s on arrival - exam significant for continued vaginal bleeding and possible tissue at external os; no active on BSUS today - quant hCG dropping, 7843 in ER today; anemic to 8.8, significant downtrend from prior a
[2023-08-10] MEDS: LACTATED RINGERS 1,000 ML 30 ML IV CONT (23:45)
[2023-08-11] VITALS (23 sets, daily range): BP systolic 89–122; BP diastolic 44–76; PULSE 47–118; RESP 13–20; TEMP 35.8–37.3; O2SAT 98–100; BMI 20.6
[2023-08-11] MEDS: LIDO 1%/EPINEPHRINE 1:100,000 50 ML VIAL 10 ML INFILTRATE (00:02)
--- NOTE | 2023-08-11 00:18 | W.PM.PROC2 ---
Procedure Note - Detailed Date of Procedure 08/11/23 Pre-op Diagnosis vaginal bleeding, incomplete miscarriage Post-op Diagnosis Same Procedure Performed suction dilation and curettage Surgeon Federico Last MD Anesthesia General Indications incomplete at 10 weeks, symptomatic anemia Findings heterogenous material in uterus on BSUS, large clot at external os, moderate amount of POC on suction curettage; bleeding minimal at end of procedure with uterus firm and contracted Description of Procedure The patient was then taken to the operating room with IVFs running. She was placed in the dorsal supine position where she received general anesthesia without any difficulty.?? The patient was placed in the dorsal lithotomy position using tanisha stirrups. She was then prepped and draped in a normal sterile fashion. A time-out procedure was performed and all members of the OR team agreed on the patient and plan. A bivalved speculum was then inserted into the patient's vagina.? The anterior lip of the cervix was grasped with a ring forceps. The suction curette was tested outside the patient and found to be working properly.? The curette was then advanced into the intrauterine cavity and circumferentially removed.? All products of conception were removed until little tissue was seen passing through the tubing. A continuous stream of bright red blood was seen coming from inside the uterus, which was resolved with methergine administration and bimanual massage. Bleeding was then minimal and the uterus was found to be contracted. The specimen was sent to pathology.? The ring forceps was removed from the anterior lip of the cervix.? The bivalve speculum was removed.? The patient tolerated the procedure well.? Sponge, lap, needle, and instrument counts were correct X3.? The patient was awakened from anesthesia and taken to the recovery room in stable condition. Estimated Blood Loss 150 Pathology Yes Complications No immediate complications Condition Stable Disposition Observation
[2023-08-11] MEDS: fentaNYL CITRATE INJ (*CRX) 100 MCG/2 ML VIAL 25 MCG IV PUSH (00:37)
[2023-08-11] MEDS: ONDANSETRON INJ 4 MG/2 ML VIAL IV PUSH ×3 (00:44→09:54)
[2023-08-11] MEDS: LACTATED RINGERS 1,000 ML 30 ML IV CONT (01:09)
[2023-08-11] MEDS: ACETAMINOPHEN 500 MG TABLET PO ×2 (02:58→09:51)
[2023-08-11] MEDS: diphenhydrAMINE HCl INJ 50 MG/ML VIAL 25 MG IV PUSH ×2 (02:58→09:51)
[2023-08-11] MEDS: LACTATED RINGERS 1,000 ML 100 ML IV CONT (03:00)
[2023-08-11 03:01] LABS: Glucose Point of Care 135 mg/dl (65-105)
--- NOTE | 2023-08-11 03:46 | PC.NURSE ---
Pt is A&O x4, able to make needs known. pt is somewhat drowsy and reports itching post fentanyl administration. Tylenol and Diphenhydramine administered by this RN. LR infusing at this time. Admission protocol reviewed with the pt and significant other. Call light use explained and call button placed within reach. Pt was provided with bedside commode. Pt requires minimal assistance to transfer to bedside commode. Pt urinated within 10 minutes of getting up tp the floor. Pt continues to experience sanguineous vaginal drainage, passing some bright red clots. Pads changed, olga lidia care completed. No further questions or needs expressed at this time, will continue to monitor.
[2023-08-11 09:07] LABS: Hematocrit 21.9 % (37.0-47.0); Mean Corpuscular HGB Conc 30.6 g/dl (32-36); Mean Corpuscular Hemoglobin 25.7 pg (26-34); Mean Corpuscular Volume 83.9 fl (80-100); Mean Platelet Volume 10.7 fl (7.4-10.4); Platelet Count Result 254 k/mm3 (150-375); Red Blood Count 2.61 M/mm3 (4.2-5.4); White Blood Count 4.3 K/mm3 (4.5-10.0)
[2023-08-11 09:19] LABS: Anion Gap 6 mmol/L (8-16); Calcium 8.3 mg/dL (8.4-10.2); Carbon Dioxide 24 mmol/L (22-30); Chloride 108 mmol/L (98-107); Estimated CRCL calculation 116 ml/min; Estimated Glomerular Filt Rate > 60; Glucose 125 mg/dL (65-110); Potassium 4.5 mmol/L (3.4-5.0); Sodium 138 mmol/L (137-145)
[2023-08-11 09:21] LABS: Hemoglobin 6.7 g/dL (12.0-15.0)
[2023-08-11 09:22] LABS: Blood Urea Nitrogen < 2 mg/dL (7-17)
[2023-08-11] MEDS: SODIUM CHLORIDE 0.9% IV 250 ML 30 ML IV CONT ×2 (09:45→15:12)
--- NOTE | 2023-08-11 09:48 | PM.GYNPNOP ---
KENNEL SUPERVISOR - A/P Assessment and plan (1) Incomplete miscarriage: Code(s): O03.4 - Incomplete spontaneous without complication Status: Acute Assessment and Plan: - s/p urgent D&C 08/11 AM - bleeding minimal, abdominal cramping improved - monitor vaginal bleeding (2) Acute blood loss anemia: Code(s): D62 - Acute posthemorrhagic anemia Status: Acute Assessment and Plan: Hgb 8.8 > 6.7, symptomatic anemia 2u pRBCs ordered Postoperative Procedures: Procedures Operation Date: 08/10/23 23:45 Actual Procedure Side Surgeon p Suction Dilation and Curettage Federico Last MD Time Spent With Patient Time: Total time spent is greater than 50% in coordination of care (as documented) at patient's floor/unit and/or counseling patient: Time with patient: less than 15 minutes KENNEL SUPERVISOR- PN:Sherron Post-Op Subjective Date/time seen: 08/11/23 09:48 Interval history: POD#1 s/p D&C for incomplete miscarriage and symptomatic acute blood loss anemia Feeling better, mild nausea Abdominal pain improved, minimal bleeding overnight No fevers or chills, voiding without issue Review of Systems Review of Systems: All systems reviewed & are unremarkable except as noted in HPI and below Exam Const: General: comfortable and no acute distress Resp: Effort & Inspection: normal respiratory effort Cardio: Rate: regular rate GI: Other: soft, nontender, nondistended Extrem: General: normal to inspection Psych: Mental Status: mental status grossly normal KENNEL SUPERVISOR - PN: Obj Data Vital Signs Vital Signs: Vital Signs - 24 hr 08/10/23 21:39 08/10/23 23:11 08/10/23 23:28 Temperature 97.2 F L Pulse Rate 147 H 119 H 122 H Respiratory Rate 18 20 20 Blood Pressure 118/78 130/95 H 112/78 Pulse Oximetry 100 100 100 Oxygen Delivery Room Air Oxygen Flow Rate 08/11/23 00:15 08/11/23 00:30 08/11/23 00:45 Temperature 97.5 F L Pulse Rate 113 H 94 118 H Respiratory Rate 14 13 15 Blood Pressure 95/44 L 98/54 L 122/76 Pulse Oximetry 100 100 100 Oxygen Delivery Simple Face Mask Simple Face Mask Room Air Oxygen Flow Rate 6 6 08/11/23 01:00 08/11/23 01:15 08/10/23 21:46 Temperature Pulse Rate 89 94 92 Respiratory Rate 13 17 18 Blood Pressure 101/65 95/64 L Pulse Oximetry 99 100 100 Oxygen Delivery Room Air Room Air Room Air Oxygen Flow Rate 08/10/23 23:35 08/11/23 01:40 08/11/23 02:55 Temperature 96.4 F L 96.4 F L 96.6 F L Pulse Rate 96 96 111 H Respiratory Rate 20 20 18 Blood Pressure 103/70 103/70 111/75 Pulse Oximetry 100 100 100 Oxygen Delivery Oxygen Flow Rate 08/11/23 04:55 Temperature 97.5 F L Pulse Rate 83 Respiratory Rate 18 Blood Pressure 100/57 L Pulse Oximetry 99 Oxygen Delivery Oxygen Flow Rate Intake/Output Intake/Output: Intake & Output 08/08/23 08/09/23 08/10/23 08/11/23 23:59 23:59 23:59 23:59 Intake Total 450 Balance 450 Meds/Results Medications: Active Medications Generic Name Dose Route Start Last Admin Trade Name Freq PRN Reason Stop Dose Admin Acetaminophen 500 mg 08/11/23 00:22 08/11/23 02:58 Acetaminophen 500 Mg Tablet PO 500 mg Q6H PRN Administration Mild Pain (1-3) or Fever Diphenhydramine HCl 25 mg 08/11/23 00:22 08/11/23 02:58 Diphenhydramine Hcl Inj 50 Mg/Ml Vial IV PUSH 25 mg Q6H PRN Administration Itching Lactated Ringer's 1,000 mls @ 100 mls/hr 08/11/23 00:22 08/11/23 03:00 Lr - Lactated Ringers Iv IV CONT 08/11/23 10:21 100 mls/hr .Q10H ONE Administration Ibuprofen 600 mg 08/11/23 00:22 Ibuprofen 600 Mg Tablet PO Q6H PRN Pain Rated 1-3 Miscellaneous Information 0 each 08/11/23 00:01 Ibuprofen Duplicate Prn 1-3 With Acetaminophen Please Clarify XX 09/10/23 00:00 CLARIFY DYLAN Naloxone HCl 0.1 mg 08/11/23 00:22 Naloxone Hcl 0.4 Mg/Ml Vial IV PUSH Q2M PRN Opiate Reversal Ondansetron HCl 4 mg 08/11/23 0
[2023-08-11] MEDS: ACETAMINOPHEN 325 MG TABLET 650 MG PO (09:54)
[2023-08-11] MEDS: IBUPROFEN 600 MG TABLET PO (11:50)
[2023-08-11] MEDS: METOCLOPRAMIDE HCL INJ 10 MG/2 ML VIAL IV PUSH (12:26)
[2023-08-11 19:47] LABS: Hematocrit 34.4 % (37.0-47.0); Hemoglobin 11.1 g/dL (12.0-15.0)
--- NOTE | 2023-08-11 20:57 | PC.NURSE ---
This RN notified Dr Federico Last about pt's H&H. New orders received to DC pt to home. Discharge packet completed, printed, reviewed with pt, signed. Discharge education completed, pt in agreement, verbalized understanding and no further questions. Pt discharged to home with significant other.
--- NOTE | 2023-08-12 20:24 | PM.DS ---
DS: Admitting Diagnosis Discharge Date 08/11/23 Admitting Diagnosis vaginal bleeding, incomplete Ab DS: Discharge Diagnosis Discharge Diagnosis (1) Incomplete miscarriage: Code(s): O03.4 - Incomplete spontaneous without complication Status: Acute Assessment and Plan: S/p D&C, pathology sent, patient tolerated well (2) Acute blood loss anemia: Code(s): D62 - Acute posthemorrhagic anemia Status: Acute Assessment and Plan: Hgb 8.8 > 6.7 > 2u pRBC > 11.6 patient feels improved s/p RBC transfusion DS: Summary Hospital Course Hospital Course: Patient presented to the ER with increased vaginal bleeding. She reports she was diagnosed with a miscarriage 1 week ago at OSH, estimated 10 weeks. She had minimal bleeding until Thursday 08/10 PM when she began soaking multiple pads per hour. She reported dizziness and palpitations as well. On admission to the ED, she was found to be tachycardic and actively bleeding with clot or tissue at the external cervical os. Due to concern for worsening acute blood loss anemia 2/2 incomplete , patient was consented and taken for urgent D&C. The procedure was uncomplicated and she tolerated the procedure well. POD#1 Hgb was 6.7 and she was given 2u pRBC transfusion. She tolerated the transfusion well and responded appropriately. She was discharged on POD#1 in improved condition. Time Spent with Patient Time attestation: Total time spent providing and/or coordinating discharge services: Exam Const: General: comfortable and no acute distress Resp: Effort & Inspection: normal respiratory effort Cardio: Rate: regular rate GI: Other: soft, nontender, nondistended Extrem: General: normal to inspection Psych: Mental Status: mental status grossly normal DS: Data Data Completed and Pending Pending studies at discharge: Pending at discharge 08/11/23 00:04 Surgical [PTH] Routine Labs on day of discharge: Labs from last 24 hours 08/10/23 21:55 Crossmatch See Detail Discharge Plan Discharge Attending physician on discharge: Federico Last Consulting providers: Daphney Pillai; Patrick Alicea Discharging Clinician: Federico Last Anticipated Discharge Date/Time: 08/11/23 22:00 Patient Disposition: Home, Self-Care Activity: may shower, no straining, as tolerated and pelvic rest Diet: regular Patient Instructions: Antibiotic Form Stand Alone Forms: General Discharge Information Follow-up/Referrals: Federico Last MD [Physician] - Discharge Medications: New ibuprofen 600 mg Tablet 600 mg PO Q6H PRN (Reason: Pain Rated 1-3) 0RF ondansetron 4 mg Tablet,Disintegrating 4 mg PO Q6H Qty: 30 0RF Date of admission: 08/11/23 01:27 Primary Care Provider: UNKNOWN,DOCTOR Admitting Provider: Federico Last Attending physician on admission: Federico Last Condition: Serious
== END 2023-08-11 20:56 | disposition home or self-care (01) ==
LOC: ANHED 22:40 → ANH3MEDSUR 08-11 20:28
PROVIDERS: Emergency Medicine; Admitting Provider Obstetrics & Gynecology; Emergency Provider Physician Assistant; Visit Provider Obstetrics & Gynecology
PROC: (CPT 59812; principal; 2023-08-10 23:45)
DX: O03.4 Incomplete spontaneous abortion without complication (principal); D62 Acute posthemorrhagic anemia; Z87.891 Personal history of nicotine dependence; Z79.899 Other long term (current) drug therapy
CPT/HCPCS: 59812; 36415; 36430; 80048; 82948; 84702; 85014; 85018; 85025; 85027; 85461; 86850; 86900; 86901; 86923; 88305; 99285; A9270; G0378; G0379; J0330; J1100; J1200; J2210; J2250; J2270; J2405; J2704; J2765; J3010; J7030; J7050; J7060; J7120; P9016

== ENCOUNTER 2024-01-04 19:12 | Emergency (ER) | payer OTHER, SELFPAY ==
--- NOTE | ~2024-01-04 | XR_ITS ---
XR chest 1V portable Ordering provider: Jamal Chin MD History: 23 years Female with . L pleuritic pain . Comparison: None. FINDINGS: MEDIASTINUM: The cardiac silhouette is not enlarged. LUNGS: No infiltrates, effusions or pneumothorax. OTHER: No free air under the diaphragm. IMPRESSION: No acute cardiopulmonary pathology. Reviewed, dictated and finalized at location A.
[2024-01-04 19:54] VITALS: BP 140/76; PULSE 72; RESP 14; TEMP 36.4; O2SAT 100
--- NOTE | 2024-01-04 20:08 | ED_ITS ---
HPI - General Adult General Chief complaint: Unspecified Stated complaint: left flank pain x 2 weeks Related Data Allergies Allergy/AdvReac Type Severity Reaction Status Date / Time amoxicillin [From Augmentin] Allergy Other Verified 08/10/23 21:43 clavulanic acid Allergy Other Verified 08/10/23 21:43 [From Augmentin] ferrous sulfate Allergy Rash Verified 08/10/23 21:43 Penicillins Allergy Other Verified 08/10/23 21:43 [facility] Past Medical History Medical History Anemia Retained products of conception Surgical History Surgical History History of D&C Social History Social History Smoking status: Former smoker Alcohol intake: current Substance use: never Substance use type: does not use Do You Feel Safe in your Home?: Yes Lack of Transportation: No Lack of Food: Never True Current Housing: I Have Housing Concerned About Future Housing: No Difficulty Paying Gas/Electric Bills: No Difficulty Paying for Meds: No Currently Unemployed: No Education: Grade School Difficulty w/ Childcare or Family Care: No Spiritual care concerns: No Course Vital Signs Vital signs: Vital Signs Temperature 97.6 F 01/04/24 19:54 Pulse Rate 72 01/04/24 19:54 Respiratory Rate 01/04/24 19:54 Blood Pressure 140/76 01/04/24 19:54 Pulse Oximetry 100 01/04/24 19:54 Oxygen Delivery Room Air 01/04/24 19:54 Temperature 97.6 F 01/04/24 19:54 Pulse Rate 01/04/24 19:54 Respiratory Rate 01/04/24 19:54 Blood Pressure 140/76 01/04/24 19:54 Pulse Oximetry 100 01/04/24 19:54 Oxygen Delivery Room Air 01/04/24 19:54 Medical Decision Making Vital Signs Vital Signs: Vital Signs Temperature 97.6 F 01/04/24 19:54 Pulse Rate 72 01/04/24 19:54 Respiratory Rate 01/04/24 19:54 Blood Pressure 140/76 01/04/24 19:54 Pulse Oximetry 100 01/04/24 19:54 Oxygen Delivery Room Air 01/04/24 19:54 Temperature 97.6 F 01/04/24 19:54 Pulse Rate 72 01/04/24 19:54 Respiratory Rate 14 01/04/24 19:54 Blood Pressure 140/76 01/04/24 19:54 Pulse Oximetry 100 01/04/24 19:54 Oxygen Delivery Room Air 01/04/24 19:54 Discharge Plan Discharge Prescriptions: No Action ibuprofen 600 mg Tablet 600 mg PO Q6H PRN (Reason: Pain Rated 1-3) 0RF ondansetron 4 mg Tablet,Disintegrating 4 mg PO Q6H Qty: 30 0RF Follow-up/Referrals: UNKNOWN,DOCTOR [Primary Care Provider] -
[2024-01-04 20:38] LABS: Appearance Urine Clear (Clear); Bacteria Urine 1+ /hpf; Bilirubin Urine Negative (Negative); Blood Urine Negative (Negative); Color Urine Yellow (Yellow); Glucose Urine UA Negative (Negative); Ketones Urine Negative (Negative); Leukocyte Esterase Ur Trace LEU/UL (Negative); Nitrate Urine Negative (Negative); Non Pathogenic Casts 0-2; Protein Urine Trace mg/dL (Negative); Specific Grav Ur 1.027 (1.001-1.035); Squamous Epithelial Cell Urine Few /hpf (Few); pH Urine 6.5 (5.0-9.0)
[2024-01-04 20:46] LABS: Add Urine Microscopic? YES
--- NOTE | 2024-01-04 21:28 | ECG_ITS ---
Test Date: 2024-01-04 21:43:25 Measurements Intervals [place] Rate: 72 P: 16 IA: 137 QRS: 63 QRSD: 71 T: -3 QT: 363 QTc: 399 Interpretive Statements SINUS RHYTHM WITH SINUS ARRHYTHMIA LOW QRS VOLTAGE IN PRECORDIAL LEADS [QRS DEFLECTION < 1.0 mV IN CHEST LEADS] NONSPECIFIC T-WAVE ABNORMALITY No previous ECG available for comparison Electronically Signed On 01-05-2024 13:02:26 CDT by Juvenal Fernandez M.D.
--- NOTE | 2024-01-04 21:29 | ED.GENADULT ---
HPI - General Adult General Chief complaint: Unspecified Stated complaint: left flank pain x 2 weeks Time Seen by Provider: 01/04/24 21:21 History of Present Illness HPI narrative: this is a 23-year-old female on estrogen control presenting with left-sided flank pain. Patient says she has achy pain in her left flank that is nonradiating and comes and goes. When she takes deep breath she develops a sharp pain. She says this feels similar to kidney stone passed. She also notes that she has had significant dyspnea on exertion. She denies lower extremity edema or history of blood clots. No fevers chills cough chest pain abdominal pain. No urinary symptoms. Related Data Allergies Allergy/AdvReac Type Severity Reaction Status Date / Time amoxicillin [From Augmentin] Allergy Other Verified 01/04/24 21:28 clavulanic acid Allergy Other Verified 01/04/24 21:28 [From Augmentin] ferrous sulfate Allergy Rash Verified 01/04/24 21:28 Penicillins Allergy Other Verified 01/04/24 21:28 PMFSH Past Medical History Medical History Anemia Retained products of conception Surgical History Surgical History History of D&C Social History Social History Smoking status: Former smoker Alcohol intake: current Substance use: never Substance use type: does not use Do You Feel Safe in your Home?: Yes Lack of Transportation: No Lack of Food: Never True Current Housing: I Have Housing Concerned About Future Housing: No Difficulty Paying Gas/Electric Bills: No Difficulty Paying for Meds: No Currently Unemployed: No Education: Grade School Difficulty w/ Childcare or Family Care: No Spiritual care concerns: No Exam Narrative: APPEARANCE: No apparent distress. Head: atraumatic. EYES: EOMI, NOSE: Atraumatic NECK: Trachea midline RESPIRATORY: No increased rate of breathing, Clear to auscultation CARDIOVASCULAR: RRR, ABDOMINAL: Non-distended soft nontender no guarding rebound, left CVA tenderness MUSCULOSKELETAl: No obvious deformities NEURO: Alert. Moving 4/4 extremities SKIN:: Warm, dry. Normal color PSYCHIATRIC: Normal affect Course Vital Signs Vital signs: Vital Signs Temperature 97.6 F 01/04/24 19:54 Pulse Rate 72 01/04/24 19:54 Respiratory Rate 14 01/04/24 19:54 Blood Pressure 140/76 01/04/24 19:54 Pulse Oximetry 100 01/04/24 19:54 Oxygen Delivery Room Air 01/04/24 19:54 Temperature 97.6 F 01/04/24 19:54 Pulse Rate 81 01/04/24 23:36 Respiratory Rate 17 01/04/24 23:36 Blood Pressure 140/76 01/04/24 19:54 Pulse Oximetry 100 01/04/24 23:36 Oxygen Delivery Room Air 01/04/24 19:54 Medical Decision Making MDM Narrative Medical decision making narrative: -Course: 23-year-old female presenting with left flank pain. chest x-ray unremarkable. D-dimer negative. Urine indicative of infection. Patient's history of kidney infections in past. She is not in excruciating pain in his had a long course of symptoms and kidney stones less likely. Patient be discharged on antibiotics and given primary care follow-up. Given return precautions for severe pain or worsening infection -DDX includes but is not limited to:UTI/pyelo kidney stone, pulmonary embolism, pneumonia, pleurisy, muscle strain -Independent interpretation of studies: labs reviewed within normal limits. Dimer negative urine with 11-20 white blood cells and +leuk esterase and +bacteria chest x-ray negative. Independent EKG interpretation: Rhythm [sinus], Rate [72], [place] -[normal], [place] -[normal], QRS [narrow], QTC [normal], T waves -[negative for concerning inversions], ST Segments - [Negative for concerning elevations] Final interpretations: normal sinus rhythm -Interventions: Motrin, Tylenol cefdinir 300 mg -Shared dec
[2024-01-04] MEDS: SODIUM CHLORIDE 0.9% IV 1,000 ML 999 ML IV CONT (21:42)
[2024-01-04] MEDS: ACETAMINOPHEN 500 MG TABLET 1000 MG PO (21:42)
[2024-01-04] MEDS: KETOROLAC 15 MG/ML VIAL (*BKC) IV PUSH (21:43)
[2024-01-04 21:50] LABS: Basophils Percent Auto 0.5 % (0.2-1.2); Eosinophils Absolute Auto 0.3 K/mm3 (0-0.3); Eosinophils Percent Auto 3.5 % (0-4.4); Hematocrit 37.5 % (37.0-47.0); Hemoglobin 12.4 g/dL (12.0-15.0); Immature Granulocyte Absolute 0.02 K/mm3 (0.00-0.031); Immature Granulocyte Percent A 0.2 % (0-0.5); Lymphocytes Absolute Auto 1.88 K/mm3 (0.9-3.2); Lymphocytes Percent Auto 22.4 % (18.3-44.2); Mean Corpuscular HGB Conc 33.1 g/dl (32-36); Mean Corpuscular Hemoglobin 28.2 pg (26-34); Mean Corpuscular Volume 85.2 fl (80-100); Mean Platelet Volume 10.5 fl (7.4-10.4); Monocytes Absolute Auto 0.8 K/mm3 (0.1-0.6); Neutrophils Absolute Auto 5.4 K/mm3 (1.3-6.7); Neutrophils Percent Auto 64.4 % (45.5-73.1); Platelet Count Result 276 k/mm3 (150-375); Red Cell Distribution Width 14.1 % (11.5-14.5); White Blood Count 8.4 K/mm3 (4.5-10.0)
[2024-01-04 22:01] LABS: Alanine Aminotransferase 12 U/L (6-35); Albumin Level 4.3 g/dL (3.5-5.1); Alkaline Phosphatase 48 U/L (38-126); Anion Gap 9 mmol/L (4-12); Aspartate Amino Transferase 18 U/L (14-36); Bilirubin,Total 0.6 mg/dL (0.2-1.3); Blood Urea Nitrogen 8 mg/dL (7-17); Calcium 9.1 mg/dL (8.4-10.2); Carbon Dioxide 23 mmol/L (22-30); Chloride 107 mmol/L (98-107); Estimated CRCL calculation 92 ml/min; Estimated Glomerular Filt Rate > 60; Glucose 92 mg/dL (65-110); Potassium 3.7 mmol/L (3.4-5.0); Sodium 139 mmol/L (137-145)
[2024-01-04 22:10] LABS: D Dimer < 0.27 ug/mL (<0.48)
[2024-01-04 22:11] LABS: NT Pro B Type Natriuretic Pept 30 pg/mL (19.9-100); Troponin I < 0.012 ng/mL (0.000-0.034)
[2024-01-04 23:36] VITALS: PULSE 81; RESP 17; O2SAT 100
--- NOTE | 2024-01-05 00:05 | PC.NURSE ---
Patient stated she feels better. EPR notified. Patients pain 09/28.
[2024-01-05] MEDS: CEFDINIR 300 MG CAPSULE PO (00:22)
== END 2024-01-05 00:28 | disposition home or self-care (01) ==
PROVIDERS: Emergency Provider Emergency Medicine
DX: N39.0 Urinary tract infection, site not specified (principal); Z86.2 Personal history of diseases of the blood and blood-forming organs and certain disorders involving the immune mechanism; Z87.891 Personal history of nicotine dependence; R94.31 Abnormal electrocardiogram [ECG] [EKG]
CPT/HCPCS: 36415; 71045; 80053; 81001; 81025; 83880; 84484; 85025; 85380; 87086; 93005; 96361; 96374; 99284; A9270; J1885; J7030